=== PATIENT | female | born 1935 | race Caucasian/White ===

== ENCOUNTER → 2016-11-22 | Outpatient (CLI) | payer MEDICARE | LOC: GMAH 10:19 | PROVIDERS: ATTEND Family Medicine | DX: E78.2 Mixed hyperlipidemia (principal); E11.9 Type 2 diabetes mellitus without complications; I10 Essential (primary) hypertension ==

== ENCOUNTER → 2016-11-25 | Outpatient (CLI) | payer MEDICARE | LOC: GMAH 10:13 | PROVIDERS: ATTEND Family Medicine | DX: N39.0 Urinary tract infection, site not specified (principal) ==

== ENCOUNTER → 2016-12-08 | Outpatient (CLI) | payer MEDICARE ==
--- NOTE | 2016-12-09 16:41 | MAM ---
EXAM DESCRIPTION: 3D Screening BILATERAL CLINICAL HISTORY: 81 yearsFemaleSCREENING. Postmenopausal. COMPARISON: Digital 2-D bilateral screening study 07/05/2011.. No prior reports available. TECHNIQUE: Bilateral CC and MLO projection full-field images, 3-D tomosynthesis digital mammographic technique. Also bilateral synthesized CC/ MLO full-field images. CAD not utilized. FINDINGS: The breast parenchymal density pattern is: Heterogeneously dense breast tissue, which may obscure small masses. No skin thickening or nipple retraction small right axillary lymph node. Bilateral solitary microaneurysm macrocalcifications. Calcifications have increased bilaterally since prior study. No focal, stellate mass or density, focal asymmetry , and no suspicious microcalcifications bilaterally. Stable mammograms compared to prior study, except for increased bilateral calcifications, taking into account differences in mammographic technique IMPRESSION: BI-RADS CATEGORY: 2 - BENIGN FINDINGS. FOLLOW UP: Routine digital bilateral screening, one year interval from December 2016. Written communication explaining the findings and follow-up, will be mailed to the patient and referring health care provider. According to the [employer], yearly mammograms are recommended starting at age 40 and continuing as long as a woman is in good health. Any breast change noted on a breast self-exam should be reported promptly to the patient's healthcare provider. Breast MRI is recommended for women with an approximately 20-25% or greater lifetime risk of breast cancer, including women with a strong family history of breast or ovarian cancer and women who have been treated for Hodgkin's disease. A negative mammographic report should not delay tissue diagnosis in patients with significant clinical history or physical findings. Extremely dense breast tissue limits the sensitivity of digital mammography. Electronically signed by: Odilon Ch MD 12/09/2016 4:40 PM CDT Workstation: [id number]
== END ==
LOC: MAMMO 10:30
PROVIDERS: ATTEND Family Medicine
DX: Z12.31 Encounter for screening mammogram for malignant neoplasm of breast (principal)
CPT/HCPCS: G0202; G0279

== ENCOUNTER → 2017-02-28 | Outpatient (CLI) | payer MEDICARE ==
--- NOTE | 2017-02-28 12:24 | US ---
Study: Bilateral Carotid Artery Doppler Sonogram. Indication: OCCLUSION AND STENOSIS OF CAROTID ARTERY Technique: Multiplanar grayscale and Doppler sonographic images of the bilateral carotid arteries and vertebral arteries were obtained. Findings: The bilateral carotid arteries demonstrate mild intimal thickening and calcified plaque. Analysis of duplex waveforms and flow velocities indicate no hemodynamically significant stenosis. The vertebral arteries demonstrate antegrade flow. Impression: Mild atherosclerosis of the bilateral carotid arteries without hemodynamically significant stenosis. Electronically signed by: Jason Goodrich MD 02/28/2017 12:22 PM CDT
== END | disposition home or self-care (01) ==
LOC: US 07:43
PROVIDERS: ATTEND Family Medicine
DX: I65.23 Occlusion and stenosis of bilateral carotid arteries (principal)

== ENCOUNTER → 2017-12-05 | Outpatient (CLI) | payer MEDICARE | LOC: GMAH 10:39 | PROVIDERS: ATTEND Family Medicine | DX: E78.2 Mixed hyperlipidemia (principal); E11.9 Type 2 diabetes mellitus without complications; I10 Essential (primary) hypertension ==

== ENCOUNTER → 2017-12-07 | Outpatient (CLI) | payer MEDICARE | LOC: GMAH 11:17 | PROVIDERS: ATTEND Family Medicine | DX: N39.0 Urinary tract infection, site not specified (principal) ==

== ENCOUNTER 2018-02-25 05:52 | Emergency (ER) | payer MEDICARE ==
[2018-02-25 06:14] VITALS: TEMP 101.1
--- NOTE | 2018-02-25 06:28 | ED.PDOC ---
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 LISINOPRIL FOR HYPERTENSION - History of Present Illness Timing/Duration: just prior to arrival Fever Severity/Quality: greater than 100.5 F Associated Symptoms: denies symptoms <Lyssa Elliott - Last Filed: 02/25/18 06:22> <SAMINA ESCOBAR - Last Filed: 02/25/18 07:07> - General Chief Complaint: Fever Stated Complaint: I was shaking so bad Time Seen by Provider: 02/25/18 06:22 Review of Systems - Review of Systems Constitutional: States: chills, fever EENTM: States: no symptoms reported Respiratory: States: no symptoms reported Cardiology: States: no symptoms reported Gastrointestinal/Abdominal: States: no symptoms reported Genitourinary: States: no symptoms reported Musculoskeletal: States: no symptoms reported Skin: States: no symptoms reported Neurological: States: no symptoms reported Endocrine: States: no symptoms reported Hematologic/Lymphatic: States: no symptoms reported <Lyssa Elliott - Last Filed: 02/25/18 06:22> Past Medical History (General) - Patient Medical History Hx Seizures: No Hx Stroke: No Hx Dementia: No Hx Asthma: No Hx of COPD: No Hx Cardiac Disorders: Yes Hx Congestive Heart Failure: No Hx Pacemaker: No Hx Hypertension: Yes Hx Thyroid Disease: No Hx Diabetes: Yes Hx Gastroesophageal Reflux: No Hx Renal Disease: No Hx Cancer: Yes - colon ca Hx of HIV: No Hx Hepatitis C: No Hx MRSA: No Surgical History: Hysterectomy - Vaccination History Hx Tetanus, Diphtheria Vaccination: No Hx Influenza Vaccination: No Hx Pneumococcal Vaccination: No Immunizations Up to Date: No - Social History Hx Tobacco Use: No Hx Chewing Tobacco Use: No Hx Alcohol Use: No Hx Substance Use: No Hx Substance Use Treatment: No Hx Depression: No Feels Threatened In Home Enviroment: No Feels Threatened In a Relationship: No Hx Physical Abuse: No Hx Emotional Abuse: No Hx Suspected Abuse: No - Female History Patient is a Female of Child Bearing Age (10 -59 yrs old): No Patient : No <EarlFrancisco JLyssa - Last Filed: 02/25/18 06:22> Family Medical History - Family History Maternal Family History: Unknown <EarlFrancisco JLyssa - Last Filed: 02/25/18 06:22> Physical Exam - Physical Exam General Appearance: Alert, Comfortable Eye Exam: left normal ENT Exam: normal ENT inspection, TMs normal, pharynx normal Neck: non-tender, full range of motion, supple Respiratory: chest non-tender, lungs clear, normal breath sounds Cardiovascular/Chest: normal peripheral pulses, regular rate, rhythm, no edema Gastrointestinal/Abdominal: normal bowel sounds, non tender, soft, no organomegaly 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 Chart read and history and physial verified and repeated. Patient is an 82 year old who went to bed in her usual health but awoke with severe chills. She feels better now but was concerned as she has had recurrent UTIS. She has no cough, congestion, shortness of breath, chest pain, emesis, or diarrhea. She denies dysuria but does have some nausea. She has DM II but is otherwise healthy. PE HEENT: TM clear, OP with no e/e/e, no congestion, no sinus tenderness, PERRL, EOMI CV: RRR nl S1S2 no murmur rubs or gallops Lungs: CTA no crackles no rhonchi no wheezes ABD: s/nt/nd/pos BS EXT: no cyanosis, clubbing, or edema Neuro: pleasant oriented female in NAD alert and oriented with no deficit Explained results to patient and will give rocephin here and start Keflex 500 mg po TID x 10 days and have her follow up with her PCP on Tuesday. She will return to ER for increased temp >100.5, emesis, or worsening of symptoms. <SAMINA ESCOBAR - Last Filed: 02/25/18 07:07> Departure <Lyssa Elliott - Last Filed: 02/25/18 06:22> <SAMINA ESCOBAR - Last Filed: 02/25/18 07:07> - Departure Clinical Impression: UTI (urinary tract infection) Qualifiers: Urinary tract infection type: acute cystitis Hematuria presence: without hematuria Qualified Code(s): N30.00 - Acute cystitis without hematuria Disposition: Discharge to Home or Self Care Condition: Good Departure Forms: ED Discharge - Pt. Copy, Patient Portal Self Enrollment Referrals: Josh Arce MD [Primary Care Provider] - 1-2 Weeks Home Medications: Ambulatory Orders Cephalexin Monohydrate [Keflex] 500 mg PO TID #30 cap 02/25/18 Gemfibrozil [Lopid] 600 mg PO BID 02/25/18 Lisinopril [Prinivil] 10 mg PO DAILY 02/25/18 Metformin HCl [Metformin HCl] 500 mg PO BID 02/25/18 Omeprazole [Omeprazole Dr] 20 mg PO DAILY 02/25/18 Simvastatin [Simvastatin] 80 mg PO DAILY 02/25/18 Additional Instructions: Keflex 500 mg po TID x 10 days and have her follow up with her PCP on Tuesday. She will return to ER for increased temp >100.5, emesis, or worsening of symptoms.
--- NOTE | 2018-02-25 06:39 | RAD ---
EXAM DESCRIPTION: Chest,1 View CLINICAL HISTORY:82 years Female, fever, chills Comparison: April 18, 2007 FINDINGS: No focal lung consolidation. No pleural effusion. No pneumothorax. Cardiac and mediastinal silhouette is unremarkable. No acute osseous abnormality. Aortic calcifications. Soft tissues are unremarkable. IMPRESSION: No acute findings. No focal lung consolidation. Electronically signed by: Ted Layton MD 02/25/2018 6:38 AM CDT
[2018-02-25] MEDS ORDERED: ACETAMINOPHEN 500 MG TAB PO ONE (06:58)
[2018-02-25] MEDS ORDERED: cefTRIAXone SODIUM 1 GM in SODIUM CHL 0.9% 50ML MIN-BAG+ 50 ML IVPB ONE (06:58)
[2018-02-25] MEDS ORDERED: SODIUM CHL 0.9% 50ML MIN-BAG+ 50 ML IVPB ONE (07:08)
[2018-02-25] MEDS ORDERED: cefTRIAXone SODIUM 1 GM VIAL ONE (07:08)
[2018-02-25 07:36] VITALS: BP 145/65; O2SAT 95
== END 2018-02-25 08:10 | disposition home or self-care (01) ==
LOC: ER 05:52
DX: N30.00 Acute cystitis without hematuria (principal); E11.9 Type 2 diabetes mellitus without complications; I10 Essential (primary) hypertension; Z85.038 Personal history of other malignant neoplasm of large intestine; Z79.84 Long term (current) use of oral hypoglycemic drugs
CPT/HCPCS: 36415; 71045; 80053; 81001; 85025; 87086; 87502; J0696; J7050

== ENCOUNTER 2018-02-27 07:55 | Inpatient (IN) | payer MEDICARE ==
--- NOTE | 2018-02-27 08:13 | ED.PDOC ---
History of Present Illness - General Chief Complaint: General Stated Complaint: fever Time Seen by Provider: 02/27/18 08:12 Source: patient Exam Limitations: no limitations - History of Present Illness Initial Comments: Jade Khan 83 y/o female stated that she has fever and shaky specially in am since -3 days ago had n/v x 2 yesterday but stopped no diarrhea,no cough has some abdominal discomfort and moderate dysuria.Seen here in ER Tuesday.Prescribed Cephalexin for her UTI Allergies/Adverse Reactions: Allergies NO KNOWN ALLERGY Allergy (Verified 02/25/18 06:02) Home Medications: Ambulatory Orders Cephalexin Monohydrate [Keflex] 500 mg PO TID #30 cap 02/25/18 Gemfibrozil [Lopid] 600 mg PO BID 02/25/18 Lisinopril [Prinivil] 10 mg PO BID 02/25/18 Metformin HCl [Metformin HCl] 500 mg PO BID 02/25/18 Omeprazole [Omeprazole Dr] 20 mg PO DAILY 02/25/18 Simvastatin [Simvastatin] 80 mg PO DAILY 02/25/18 Aspirin [Aspirin Adult Low Dose] 81 mg PO DAILY 02/27/18 Clonidine HCl 0.1 mg PO BEDTIME 02/27/18 Review of Systems - Review of Systems Constitutional: States: fever EENTM: States: no symptoms reported Respiratory: States: no symptoms reported Cardiology: States: no symptoms reported Gastrointestinal/Abdominal: States: see HPI Genitourinary: States: see HPI Musculoskeletal: States: no symptoms reported Skin: States: no symptoms reported Neurological: States: no symptoms reported Endocrine: States: no symptoms reported Past Medical History (General) - Patient Medical History Hx Seizures: No Hx Stroke: No Hx Dementia: No Hx Asthma: No Hx of COPD: No Hx Cardiac Disorders: Yes Hx Congestive Heart Failure: No Hx Pacemaker: No Hx Hypertension: Yes Hx Thyroid Disease: No Hx Diabetes: Yes Hx Gastroesophageal Reflux: No Hx Renal Disease: No Hx Cancer: Yes - colon ca Hx of HIV: No Hx Hepatitis C: No Hx MRSA: No Surgical History: cholecystectomy, other - colon,hysterectomy ,bladder suspension - Vaccination History Hx Tetanus, Diphtheria Vaccination: No Hx Influenza Vaccination: No Hx Pneumococcal Vaccination: No - Social History Hx Tobacco Use: No Hx Chewing Tobacco Use: No Hx Alcohol Use: No Hx Substance Use: No Hx Substance Use Treatment: No Hx Depression: No Hx Physical Abuse: No Hx Emotional Abuse: No Hx Suspected Abuse: No - Activities of Daily Living Patient Lives Alone: No Home Health Agency (if applicable): [facility] [place] Grooming Ability: Independent Eating (Feeding) Ability: Independent Toileting Ability: Independent - Female History Patient : No Family Medical History - Family History Maternal Family History: Unknown Hx Family Cancer: Yes - dad-prostate; Hx Family;Other: MOM- age 9090 years old -old age Physical Exam - Physical Exam General Appearance: Alert, Comfortable, No apparent distress, Well Developed, Well Nourished, Other - not acutely ill Eye Exam: bilateral normal Ears, Nose, Throat: hearing grossly normal, normal ENT inspection, normal pharynx Neck: non-tender, full range of motion, supple Respiratory: chest non-tender, lungs clear, normal breath sounds Cardiovascular/Chest: normal peripheral pulses, regular rate, rhythm, no murmur Peripheral Pulses: radial,right: 2+, radial,left: 2+ Gastrointestinal/Abdominal: normal bowel sounds, soft, tenderness - tenderness alll over Back Exam: no CVA tenderness, no vertebral tenderness Extremity: normal range of motion, non-tender, no pedal edema, no calf tenderness Neurologic: alert, oriented x 3 Skin Exam: normal color, warm/dry Lymphatic: no adenopathy Progress - Progress Progress: 02/27/18 08:33 Vital Signs - 8 hr 02/27/18 02/27/18 08:00 08:24 Temperature 102.0 F H Pulse Rate [ 111 H 147 H left brachial] Respiratory 22 20 Rate Blood Pressure 186/121 154/85 [left brachial] O2 Sat by Pulse 97 96 Oximetry - Results/Orders Results/Orders: Vital Signs - 24 hr 02/27/18 02/27/18 02/27/18 08:00 08:24 09:20 Temperature 102.0 F H 100.5 F H Pulse Rate [ 111 H 147 H 138 H left brachial] Respiratory 22 20 18 Rate Blood Pressure 186/121 154/85 140/90 [left brachial] O2 Sat by Pulse 97 96 95 Oximetry 02/27/18 02/27/18 02/27/18 10:01 10:29 10:59 Temperature 101.1 F H 100.2 F H Pulse Rate [ 143 H 137 H left brachial] Respiratory 16 24 Rate Blood Pressure 145/75 159/91 [left brachial] O2 Sat by Pulse 94 L 94 L Oximetry 02/27/18 02/27/18 02/27/18 11:30 12:00 13:03 Temperature 100.1 F H Pulse Rate [ 132 H 84 78 left brachial] Respiratory 16 16 18 Rate Blood Pressure 123/66 104/67 117/58 [left brachial] O2 Sat by Pulse 95 95 96 Oximetry 02/27/18 14:00 Temperature Pulse Rate [ 80 left brachial] Respiratory 16 Rate Blood Pressure 163/87 [left brachial] O2 Sat by Pulse 97 Oximetry 02/27/18 08:14 IV Care:Saline Lock per Protoc QSHIFT 02/27/18 08:35 B-TYPE NATRIURETIC PEPTIDE/BNP Stat 02/27/18 08:45 URINE CULTURE W/COLONY COUNT Stat EKG STAT 02/27/18 09:14 BLOOD CULTURE Stat 02/27/18 13:03 EKG Assessment ONCE 02/27/18 13:15 Be Our Guest [place] [place] E[place] STAT 02/27/18 13:26 Flu A&B [INFLUENZA A & B ANTIGEN] Stat Laboratory Results - last 24 hr 02/27/18 02/27/18 02/27/18 08:35 08:35 08:45 WBC 8.1 RBC 3.66 L Hgb 11.6 L Hct 35.1 L MCV 96.0 MCH 31.6 H MCHC 33.0 RDW 12.2 Plt Count 191 MPV 10.0 Absolute Neuts (auto) 7.30 H Absolute Lymphs (auto) 0.60 L Absolute Monos (auto) 0.10 L Absolute Eos (auto) 0.10 Absolute Basos (auto) 0.00 Neutrophils % 89.9 H Lymphocytes % 7.3 L Monocytes % 1.5 L Eosinophils % 0.9 L Basophils % 0.4 PT 10.1 INR 1.01 PTT (SP) 27.6 Sodium 136 Potassium 4.3 Chloride 103 Carbon Dioxide 21 Anion Gap 16.3 BUN 15 Creatinine 0.65 BUN/Creatinine Ratio 23.1 H Random Glucose 145 H Serum Osmolality 275.4 Lactic Acid 1.8 Calcium 9.1 Magnesium 1.8 Total Bilirubin 0.8 Direct Bilirubin 0.2 Indirect Bilirubin 0.6 AST 34 ALT 31 Alkaline Phosphatase 98 Creatine Kinase 114 CK-MB (CK-2) 1.4 CK-MB (CK-2) % Not Reportable Troponin I 0.08 H* Serum Total Protein 7.5 Albumin 3.4 Urine Color Malia H Urine Appearance Cloudy Urine pH 7.0 Ur Specific [place] 1.020 Urine Protein 100 H Urine Glucose (UA) Negative Urine Ketones Trace Urine Blood Small H Urine Nitrite Negative Urine Bilirubin Negative Urine Urobilinogen 0.2 Ur Leukocyte Esterase Small H Urine RBC 10-20 H Urine WBC >50 H Ur Epithelial Cells 3-5 Amorphous Sediment Trace Urine Bacteria 1+ Hyaline Casts 0-1 Urine Mucus Trace 02/27/18 10:53 WBC RBC Hgb Hct MCV MCH MCHC RDW Plt Count MPV Absolute Neuts (auto) Absolute Lymphs (auto) Absolute Monos (auto) Absolute Eos (auto) Absolute Basos (auto) Neutrophils % Lymphocytes % Monocytes % Eosinophils % Basophils % PT INR PTT (SP) Sodium Potassium Chloride Carbon Dioxide Anion Gap BUN Creatinine BUN/Creatinine Ratio Random Glucose Serum Osmolality Lactic Acid Calcium Magnesium Total Bilirubin Direct Bilirubin Indirect Bilirubin AST ALT Alkaline Phosphatase Creatine Kinase CK-MB (CK-2) CK-MB (CK-2) % Troponin I 0.13 H* Serum Total Protein Albumin Urine Color Urine Appearance Urine pH Ur Specific [place]ona Urine Protein Urine Glucose (UA) Urine Ketones Urine Blood Urine Nitrite Urine Bilirubin Urine Urobilinogen Ur Leukocyte Esterase Urine RBC Urine WBC Ur Epithelial Cells Amorphous Sediment Urine Bacteria Hyaline Casts Urine Mucus - EKG/XRAY/CT EKG: Sinus, Tachy, nonspecific ST T wave Chg Comments: HR-147 XRAY: chest - cardiomegaly,no chf/radiologist - Additional EKG/XRAY/Consults EKG #2: Sinus, no ST T wave changes Comments: HR-77 Departure - Departure Clinical Impression: Elevated troponin I level Fever Qualifiers: Fever type: unspecified Qualified Code(s): R50.9 - Fever, unspecified Urinary tract infection Qualifiers: Urinary tract infection type: site unspecified Hematuria presence: without hematuria Qualified Code(s): N39.0 - Urinary tract infection, site not specified Time of Disposition: 15:28 Disposition: Discharge to Home or Self Care Condition: Fair Departure Forms: ED Discharge - Pt. Copy, Patient Portal Self Enrollment Referrals: Josh Arce MD [Primary Care Provider] - 1-2 Weeks Home Medications: Ambulatory Orders Cephalexin Monohydrate [Keflex] 500 mg PO TID #30 cap 02/25/18 Gemfibrozil [Lopid] 600 mg PO BID 02/25/18 Lisinopril [Prinivil] 10 mg PO BID 02/25/18 Metformin HCl [Metformin HCl] 500 mg PO BID 02/25/18 Omeprazole [Omeprazole Dr] 20 mg PO DAILY 02/25/18 Simvastatin [Simvastatin] 80 mg PO DAILY 02/25/18 Aspirin [Aspirin Adult Low Dose] 81 mg PO DAILY 02/27/18 Clonidine HCl 0.1 mg PO BEDTIME 02/27/18 Decision To Admit - Decistion To Admit Decision to Admit Reason: Admit from ER Decision to Admit Date: 02/27/18 - D/W Jaxon Yanez-ANP/Hospitalist Decision to Admit Time: 15:26
--- NOTE | 2018-02-27 08:34 | RAD ---
EXAM DESCRIPTION: Chest,1 View CLINICAL HISTORY: 82 years Female, fever COMPARISON: Previous study February 25, 2018 TECHNIQUE: AP portable chest. FINDINGS: Heart size is large with mildly prominent central pulmonary vascularity. No consolidating infiltrate, pneumothorax or pleural effusion. No worrisome pulmonary nodule or mass. Heart appears somewhat larger than on previous study. Bones are unremarkable. IMPRESSION: Large heart without congestive failure. Electronically signed by: Ronny Peralta MD 02/27/2018 8:32 AM CDT
[2018-02-27] MEDS ORDERED: ASPIRIN TABLET 325 MG TAB PO ONE (08:54)
[2018-02-27] MEDS ORDERED: SODIUM CHLORIDE 0.9% 1000ML 1,000 ML ONE (08:58)
[2018-02-27] MEDS ORDERED: KETOROLAC TROMETHAMINE INJ 30 MG/ML VIAL IV ONE (10:09)
[2018-02-27] MEDS ORDERED: SODIUM CHLORIDE 0.9% 500ML 500 ML IVS ONE (10:09)
[2018-02-27] MEDS ORDERED: levoFLOXacin 750MG IV 750 MG in PREMIX BAG 1 BAG IVPB ONE (10:11)
--- NOTE | 2018-02-27 10:41 | CT ---
EXAM DESCRIPTION: Abdomen/Pelvis w/o Contrast: Computed Tomography. CLINICAL HISTORY: fever/abdominal pain COMPARISON: CT scan of the abdomen and pelvis without contrast 11/19/2011. TECHNIQUE: Spiral-axial scans 2.5 mm intervals through the abdomen and pelvis without oral or IV contrast. Coronal and sagittal 2.0 mm reconstructions. Total Exam DLP: 991.68 mGy-cm. This exam was performed according to our departmental CT dose-optimization program which includes automated exposure control, adjustment of the mA and/or kV according to patient size and/or use of iterative reconstruction technique; to reduce radiation dose to as low as reasonably achievable (ALARA). FINDINGS: Lung bases and pleura: Pleural base 6 mm nodule right lower lobe on axial image 12. Bilateral pleural thickening with no effusion. Atelectasis in the inferior lingula versus scarring. Liver, stomach, spleen, and adrenal glands: 5.5 cm cyst in the medial segment of the left hepatic lobe. Stable since the prior study. Long axis of the right lobe is 22 cm. No change since the prior study. Small hiatal hernia remainder of the stomach and other solid organs are negative. Pancreas, Gallbladder, and Ducts: Surgical clips in the gallbladder fossa. Duct not dilated. Minimal fatty infiltration of the pancreas. Kidneys and Ureters: 3 cm cyst projecting from the superior cortex lateral right kidney. 3 mm radiodense stone in the mid collecting system. No hydronephrosis. Ureters are unremarkable. Thin cortex in the left kidney. Mesentery: No significant fatty stranding or fascial thickening in the abdominal compartment or in the hernias. Please see below. Aorta: Moderate atherosclerotic calcification extending into the common iliac arteries. Narrowing of the distal aortic lumen. Small Bowel: Negative. Terminal Ileum/Cecum: TI negative. Cecum slightly distended by fecal matter. No definite appendix. Small diverticula but no complications. Colon: Fecal material in the proximal and distal colon. Anastomosis of the mid sigmoid with the descending colon/sigmoid junction. No obstruction or mass. Pelvic Organs: Bladder wall thickening. No calcifications or loose radiodense stones. Vaginal cuff unremarkable. Spine and Bony Pelvis: Bulging L3-4 disc mild thoracolumbar dextroscoliosis. Abdominal Wall/Back Soft Tissues: Infraumbilical 5.7 x 4.4 cm midline abdominal wall defect containing gas-filled loops of small bowel but no evidence of incarceration, strangulation, or obstruction. No free fluid. Second much smaller hernia containing mesentery only in the midline above the umbilicus on axial images 68-78. Minimal density in the mesentery. Dimensions of the defect are 1.6 x 1.0 cm. IMPRESSION: 1. Two Hernias in the abdominal midline wall with the largest infraumbilical, defect measuring almost 6 cm diameter. Has enlarged slightly since the prior study. Small bowel within the hernia shows no complications. Supraumbilical midline anterior abdominal wall defect is stable since the prior study with minimal fatty density only herniated, no new edema or mass. 2. Anastomosis in the distal colon is unremarkable with no evidence of recurrent mass or obstruction. No free fluid. 3. 3 cm cyst projecting from the posterior superior right renal cortex has enlarged since the prior study. Measures fluid density and well-circumscribed. Stable stone within the right kidney. Minimal left renal cortical atrophy. 4. Stable hepatomegaly and 5.5 cm left hepatic cyst. 5. Stable pleural nodule in the right lung base. Electronically signed by: Odilon Ch MD 02/27/2018 10:40 AM CDT
[2018-02-27] MEDS ORDERED: LABETALOL INJ 5 MG/ML VIAL IV ONE (10:57)
[2018-02-27] MEDS ORDERED: ONDANSETRON INJ 4 MG/2 ML VIAL IV ONE ×2 (13:00→13:03)
[2018-02-27] MEDS ORDERED: MEROPENEM 500 MG in SODIUM CHL 0.9% 50ML MIN-BAG+ 50 ML IVPB ONE (13:27)
[2018-02-27] MEDS ORDERED: MEROPENEM 500 MG VIAL IVPB ONE (14:37)
[2018-02-27] MEDS ORDERED: SODIUM CHL 0.9% 50ML MIN-BAG+ 50 ML IVPB ONE ×2 (14:38→20:28)
--- NOTE | 2018-02-27 15:39 | HP ---
SUPERVISING PHYSICIAN: Caesar Tinajero MD CHIEF COMPLAINT: Fever. HISTORY OF PRESENT ILLNESS: Ms. Day is an 83 year-old female patient who presented to the Emergency Room today after she started running a fever and became shaky at home. She noted that she had first experienced the same symptoms on February 25 at which time she was seen in the Emergency Room and had some nausea and vomiting for two days. She was treated in the Emergency Room Tuesday for a urinary tract infection and started on Cephalexin. Today on her presentation to the Emergency Room, her vital signs are showing she had a temperature of 102.0, pulse 138 to 147, blood pressure was showing some elevation at 140/90, saturation 95% on room air. She denied any chest pain or shortness of breath. She was given Tylenol and fluids. Along with the nausea and vomiting in the past two days she had been experiencing abdominal discomfort as well as some mild to moderate dysuria. Laboratory showed a normal white count but a left shift. Chemistries showed normal electrolytes. Cardiac enzymes showed an elevation in troponin, initially 0.08, repeat at 2 hours was up to 0.13. Urinalysis showed a small amount of blood with small leukoesterase and microscopic revealed 10 to 20 RBCs with greater than 50 WBCs and 1+ bacteria with 0 to 7 hyalin cath, trace amount of mucus. She was started on meropenem for a urinary tract infection. She had a flu swab that was negative for both A&B. EKG showed a normal sinus rhythm after her rate was controlled with a single dose of labetalol. Again, she was not complaining of any chest pain and temperature had responded well to Tylenol and treatment. Patient is now going to be admitted to the medical/surgical floor for ongoing treatment of urinary tract infection, concerns for sepsis, having failed to respond to outpatient treatment plans. PAST MEDICAL HISTORY: 1. Hypertension. 2. Hyperlipidemia. 3. Colon cancer in 2008 with surgical resection. PAST SURGICAL HISTORY: 1. Cholecystectomy. 2. Colon resection in 2008. 3. Hysterectomy. 4. Bladder suspension. CURRENT MEDICATIONS: 1. Lopid 600 mg b.i.d. 2. Simvastatin 80 mg daily. 3. Omeprazole 20 mg at breakfast. 4. Metformin 500 mg b.i.d. 5. Lisinopril 10 mg b.i.d. 6. Clonidine 0.1 mg at bedtime. 7. Keflex 500 mg t.i.d. 8. Aspirin 81 mg daily. ALLERGIES: NO KNOWN DRUG ALLERGIES. FAMILY HISTORY: Father at age 68 secondary to lung cancer. Mother at age 90 of natural causes. She has one sister who 2 years previously from a myocardial infarction. SOCIAL HISTORY: Patient is a retired hospital secretary. She is , her is sole cell geneticist who has advanced Parkinson's disease. She has 4 children. She was a previous tobacco smoker but quit 15 years previously as well as she quit drinking alcohol several years in the past. She denies any illicit drug use. REVIEW OF SYSTEMS: CONSTITUTIONAL: As noted in the history of present illness, fevers, chills. T- max temperature of 102.0. HEENT: Denies ear aches, sore throat, nasal congestion. RESPIRATORY: Denies cough, wheezing, shortness of breath. CARDIOVASCULAR: Denies chest pain, palpitations or syncopal episodes or peripheral edema. GASTROINTESTINAL: As noted in history of present illness. . GENITOURINARY: As noted in history of present illness. MUSCULOSKELETAL: No reported symptoms. NEUROLOGICAL: Denies headaches, seizures, ataxia or other neurological deficits. PHYSICAL EXAMINATION: VITAL SIGNS: Initially in the Emergency Room, temperature was 102.0 with heart rate of 147, chest pain 149/90, saturation 95% on room air with respirations 18. After Tylenol fever decade along with fluids and labetalol, heart rate was 84, blood pressure 104/67, respirations 16, saturation 95% on room air. Admission weight 75.4 kg. GENERAL: The patient appeared to be in no acute distress, resting comfortably, well-hydrated and well-nourished. HEENT: Tympanic membranes clear bilaterally. Oropharynx is pink, moist without any lesions. NECK: Supple, non-tender. No jugular venous distention noted. CHEST: Lungs clear to auscultation bilaterally without any rhonchi, wheezes, or rales. HEART: Regular rate and rhythm without any appreciable murmurs, gallops, or rubs. ABDOMEN: Soft with some tenderness noted over the epigastrium. No rebound tenderness. Bowel sounds are present. EXTREMITIES: There is no cyanosis, clubbing or edema. NEUROLOGIC: Cranial nerves II-XII are grossly intact. The patient is alert and oriented times three. Facial features were symmetrical. Extraocular movement were normal, no notably nystagmus. LABORATORY: White count on admission was 8,100 with hemoglobin 11.6, hematocrit 35.1, platelet count 191,000, differential showed to have a left shift. Coagulation studies showed normal PT/PTT. Initial chemistries showed normal electrolytes with potassium 4.3, BUN 15, creatinine 0.65, magnesium 1.8, calcium 9.1. Liver functions all within normal limits. Initial troponin 0.08 and two hours post admission was 0.13 with BNP of 406. Urinalysis showed 100 of protein, small amount of blood and small leukoesterase on dipstick. Microscopic showed 10 to 20 RBCs, greater than 50 WBCs, 3 to 5 epithelials, 1+ bacteria, 0 to 1 hyalin caths and trace mucus. MICROBIOLOGY: Urine culture is pending. She had an influenza swab by PCR that was negative for A and B. RADIOLOGY: Initially she had a chest x-ray in the Emergency Department and a single view chest per radiology interpretation showed enlarged heart without congestive failure. This was followed up with a CT of the abdomen and pelvis. without contrast and per radiology interpretation there was note of 2 hernias in the midline with no complications noted. Also noted was anastomosis of distal colon was unremarkable with no evidence of recurrence mass or obstruction. There was noted a 3 cm cyst projecting through the superior right renal cortex, enlarged from previous studies. There was note of stable hepatomegaly and a 5.5 cm left hepatic cyst and a stable pleural nodule in the right lung base. EK-lead EKG initially in the Emergency Room showed a tachycardia and after she was given labetalol and fluids and Tylenol, repeat EKG showed a normal sinus rhythm with no ST-wave changes, no T-wave inversions. ASSESSMENT: 1. Sepsis as noted with tachycardia, fever of 102 with identified source being a urinary tract infection having failed to respond to outpatient management. 2. Urinary tract infection having failed to respond to antibiotic therapy in outpatient setting requiring initiation of parenteral antibiotics. 3. Elevated troponins, uncertain etiology and likely due to acute stress event with 102 fever with no reported chest pains and EKG showing no acute changes, no ST elevation or T-wave inversion. 4. Hypertension with last echocardiogram noted to be in 2006 with ejection fraction of 60%. 5. Diabetes mellitus type 2 on oral therapy. 6. History of pulmonary nodule unchanged on current CT studies. 7. History of frequent urinary tract infections in the the past having a bladder suspension. 8. History of colon cancer in 2008 with a mass in the colon with colon resection performed by Dr. Rowland. 9. Hernias, one in the dome of midline and one supraumbilical without any noted complications on CT. 10. Gastroesophageal reflux disease on PPI with current symptoms including epigastric discomfort. PLAN: The patient is going to be admitted to the medical/surgical floor for ongoing treatment of urinary tract infection with sepsis. She was given fluids , labetalol and initiated on antibiotics with meropenem in the Emergency Room. This will be continued. The meropenem will be continued on admission and will await cultures to further target antibiotic therapy. I plan to repeat her cardiac enzymes and consult with Dr. Brielle Fitzpatrick the morning as he is her metallurgical laboratory assistant, and closely monitor on cardiac telemetry. Will repeat EKGs. Will start her on some IV fluids for maintenance as she appears to be a little bit dehydrated. Will have Tylenol and Motrin for any fevers. Will monitor blood cultures. She will be on DVT prophylaxis as per protocol. We will resume her home medications once they have been updated and verified in the electronic medical records. Will anticipate her length of stay to be at least 2 to 3 days. Until the patient can transition to clinical outpatient management we will continue to monitor and treat as needed. #[id number] [facility]
[2018-02-27] MEDS ORDERED: DEXTROSE 50% 25 GM/50 ML SYG IV PRN (15:46)
[2018-02-27] MEDS ORDERED: GLUCAGON INJ 1 MG VIAL SUBCU PRN (15:46)
[2018-02-27] MEDS ORDERED: ONDANSETRON INJ 4 MG/2 ML VIAL IV PRN (15:46)
[2018-02-27] MEDS ORDERED: IV SET AND CAP CHANGE INJ INJ SCH (16:00)
[2018-02-27] MEDS: INSULIN LISPRO 100 UNITS/ML PEN SUBCU SCH ×2 (17:19→21:06)
[2018-02-27] MEDS ORDERED: MEROPENEM 1 GM VIAL IVPB ONE (20:28)
[2018-02-27] MEDS: LISINOPRIL 10 MG TAB PO SCH (20:55)
[2018-02-27] MEDS: cloNIDine HCL 0.1 MG TAB PO SCH (20:55)
[2018-02-27] MEDS: KCL 20 MEQ/NS 1,000 ML IVS PRN (20:56)
[2018-02-27] MEDS: SODIUM CHLORIDE 0.9% (FLUSH) 10 ML SYG IV PRN (20:56)
[2018-02-27] MEDS: ENOXAPARIN SODIUM 40 MG/0.4 ML SYG SUBCU SCH (20:56)
[2018-02-27] MEDS: GEMFIBROZIL 600 MG TAB PO SCH (20:56)
[2018-02-27] MEDS: MEROPENEM 1 GM in SODIUM CHL 0.9% 50ML MIN-BAG+ 50 ML IVPB SCH (22:27)
[2018-02-27] MEDS: ACETAMINOPHEN 325 MG TAB PO PRN (22:33)
[2018-02-28] MEDS ORDERED: SODIUM CHL 0.9% 50ML MIN-BAG+ 50 ML IVPB ONE ×3 (04:47→20:04)
[2018-02-28] MEDS ORDERED: MEROPENEM 1 GM VIAL IVPB ONE ×3 (04:48→20:05)
[2018-02-28] MEDS: MEROPENEM 1 GM in SODIUM CHL 0.9% 50ML MIN-BAG+ 50 ML IVPB SCH ×3 (06:20→22:14)
[2018-02-28] MEDS: PANTOPRAZOLE SODIUM IV 40 MG VIAL IV SCH (06:21)
[2018-02-28] MEDS: INSULIN LISPRO 100 UNITS/ML PEN SUBCU SCH ×4 (07:25→20:59)
[2018-02-28] MEDS: metFORMIN HCL 500 MG TAB PO SCH ×2 (07:34→16:33)
[2018-02-28] MEDS ORDERED: SIMVASTATIN 20 MG TAB ONE (08:12)
[2018-02-28] MEDS: GEMFIBROZIL 600 MG TAB PO SCH ×2 (08:44→20:58)
[2018-02-28] MEDS: LISINOPRIL 10 MG TAB PO SCH ×2 (08:44→20:58)
[2018-02-28] MEDS: ASPIRIN (ENTERIC COATED) 81 MG TAB PO SCH (08:44)
[2018-02-28] MEDS ORDERED: NON-FORMULARY MEDICATION 1 EA MIS (Simvastatin [Simvastatin] 80 MG) PO SCH (09:00)
[2018-02-28] MEDS: KCL 20 MEQ/NS 1,000 ML IVS PRN (11:02)
[2018-02-28] MEDS: METOPROLOL SUCCINATE XL 50 MG TAB PO SCH (12:53)
[2018-02-28] MEDS: ACETAMINOPHEN 325 MG TAB PO PRN ×2 (12:53→21:01)
[2018-02-28] MEDS: METOPROLOL TARTRATE INJ 5 MG/5 ML VIAL IV ONE ×2 (12:55)
[2018-02-28] MEDS ORDERED: ALPRAZolam 0.25 MG TAB PO ONE (13:04)
[2018-02-28] MEDS ORDERED: ACETAMINOPHEN 325 MG TAB PO PRN (13:04)
[2018-02-28] MEDS ORDERED: ALPRAZolam 0.25 MG TAB PO PRN (13:29)
[2018-02-28] MEDS ORDERED: ALUMINUM & MAGNESIUM HYDROXIDE 30 ML UD PO PRN (13:29)
--- NOTE | 2018-02-28 14:00 | PN ---
SUPERVISING PHYSICIAN: Caesar Tinajero MD DATE: 02/28/18 SUBJECTIVE: The patient is lying in bed. She has just returned from Dr. Hannah ' office. Earlier, she had felt a little flushed and her heart rate was up. We started her on metoprolol as recommended by Dr. Hannah. She also received one dose of Xanax and she is feeling much better now. She does complain of having acid indigestion after eating and she was quite concerned about that. Otherwise, she has no complaints of chest pain, shortness of breath, nausea or vomiting. OBJECTIVE: VITAL SIGNS: Afebrile. Heart rate 112. Blood pressure 165/77. Respiratory rate 20. O2 saturation 92% on room air. RESPIRATORY: Essentially clear to auscultation bilaterally. CARDIAC: Slightly irregular with a tachycardic rate. GASTROINTESTINAL: Abdomen is soft, nondistended, nontender. Bowel sounds are positive. EXTREMITIES: No cyanosis, clubbing or edema. NEUROLOGIC: Awake, alert and oriented times three. LABORATORY: WBC 9.1, hemoglobin 10, hematocrit 29.8. Electrolytes are basically within normal limits with blood sugars running between 120 and 172. Urine culture is pending. All other labs and films have been reviewed via the EMR. ASSESSMENT: 1. Sepsis as noted with tachycardia, fever of 102 with identified source being a urinary tract infection having failed to respond to outpatient management. 2. Urinary tract infection having failed to respond to antibiotic therapy in outpatient setting requiring initiation of parenteral antibiotics. 3. Elevated troponins, uncertain etiology, likely due to acute stress event with 102 fever with no reported chest pains and EKG showing no acute changes, no ST elevation or T-wave inversion. 4. Hypertension with last echocardiogram noted to be in 2006 with ejection fraction of 60%. 5. Diabetes mellitus, type 2, on oral therapy. 6. History of pulmonary nodule, unchanged on current CT studies. 7. History of frequent urinary tract infections in the the past having a bladder suspension. 8. History of colon cancer in 2008 with a mass in the colon with colon resection performed by Dr. Rowland. 9. Hernias, one in the dome of midline and one supraumbilical without any noted complications on CT. 10. Gastroesophageal reflux disease on proton pump inhibitor with current symptoms including epigastric discomfort and heartburn. PLAN: We will continue present supportive care. She saw Dr. Brielle today and he has recommended she be put on metoprolol succinate 50 mg daily and to followup with him in two weeks for an echocardiogram. He felt that the elevated troponins were more from her septic event than from a cardiac anomaly. I have started her on metoprolol succinate at 50 mg daily. I also have given her some Xanax for anxiety as well as Maalox for symptoms of heartburn and gastroesophageal reflux disease. We will continue on her present antibiotic therapy and monitor her cultures as they become available. I have ordered routine labs for in the morning. We will continue to monitor the patient closely and follow as needed. Dr. Tinajero is the collaborating physician and available for consultation. [facility][id number] [facility]
[2018-02-28] MEDS ORDERED: METOPROLOL TARTRATE INJ 5 MG/5 ML VIAL IV ONE ×2 (15:19→15:24)
[2018-02-28] MEDS: ENOXAPARIN SODIUM 40 MG/0.4 ML SYG SUBCU SCH (20:58)
[2018-02-28] MEDS: cloNIDine HCL 0.1 MG TAB PO SCH (20:58)
[2018-02-28] MEDS: SIMVASTATIN 20 MG TAB PO SCH (20:58)
[2018-03-01] MEDS: KCL 20 MEQ/NS 1,000 ML IVS PRN (02:21)
[2018-03-01] MEDS ORDERED: MEROPENEM 1 GM VIAL IVPB ONE ×3 (05:12→20:37)
[2018-03-01] MEDS ORDERED: SODIUM CHL 0.9% 50ML MIN-BAG+ 50 ML IVPB ONE ×3 (05:12→20:37)
[2018-03-01] MEDS: MEROPENEM 1 GM in SODIUM CHL 0.9% 50ML MIN-BAG+ 50 ML IVPB SCH ×3 (05:56→21:37)
[2018-03-01] MEDS: PANTOPRAZOLE SODIUM IV 40 MG VIAL IV SCH (06:29)
[2018-03-01] MEDS: INSULIN LISPRO 100 UNITS/ML PEN SUBCU SCH ×4 (07:06→21:35)
[2018-03-01] MEDS: metFORMIN HCL 500 MG TAB PO SCH ×2 (07:26→16:57)
[2018-03-01] MEDS: GEMFIBROZIL 600 MG TAB PO SCH ×2 (08:02→20:43)
[2018-03-01] MEDS: LISINOPRIL 10 MG TAB PO SCH ×2 (08:02→20:43)
[2018-03-01] MEDS: METOPROLOL SUCCINATE XL 50 MG TAB PO SCH (08:02)
[2018-03-01] MEDS: ASPIRIN (ENTERIC COATED) 81 MG TAB PO SCH (08:02)
[2018-03-01] MEDS: ACETAMINOPHEN 325 MG TAB PO PRN ×2 (14:06→19:40)
[2018-03-01] MEDS ORDERED: MAGNESIUM SULFATE PREMIX 2GM 2 GM in PREMIX BAG 1 BAG IVPB ONE (14:51)
[2018-03-01] MEDS ORDERED: MAGNESIUM SULFATE PREMIX 2GM 50 ML IVPB ONE (15:45)
--- NOTE | 2018-03-01 16:36 | PN ---
SUPERVISING PHYSICIAN: Caesar Tinajero MD DATE: 03/01/18 SUBJECTIVE: The patient is walking around in her hospital room and states she feels much better. She has had no complaints of shortness of breath, palpitations, tachycardia since yesterday afternoon. She is feeling much improved. No nausea or vomiting. OBJECTIVE: VITAL SIGNS: Temperature 98.1. T-max 24 hours is 100.7. Heart rate 95. Blood pressure 174/88 Respiratory rate 18. O2 saturation 91% on room air. RESPIRATORY: Somewhat diminished at the basis, otherwise clear to auscultation. CARDIAC: Regular rate and rhythm. . GASTROINTESTINAL: Abdomen is soft, nondistended, nontender. Bowel sounds are positive. EXTREMITIES: No cyanosis, clubbing or edema. NEUROLOGIC: Awake, alert and oriented times three. LABORATORY: WBC 10.4, hemoglobin 9.9, hematocrit 30.3. Electrolytes are basically within normal limits except magnesium is slightly low at 1.7. Her final urine culture shows no growth after 12 hours incubation. All other labs and films have been reviewed via the EMR. ASSESSMENT: 1. Sepsis as noted with tachycardia, fever of 102 on admission but is now 100.7 , most likely due to urinary tract infection having failed to respond to outpatient management. 2. Urinary tract infection having failed to respond to antibiotic therapy in outpatient setting requiring initiation of parenteral antibiotics. 3. Elevated troponins, uncertain etiology, likely due to acute stress event with 102 fever with no reported chest pains and EKG showing no acute changes, no ST elevation or T-wave inversion. 4. Hypertension with last echocardiogram noted to be in 2006 with ejection fraction of 60%. 5. Diabetes mellitus, type 2, on oral therapy. 6. History of pulmonary nodule, unchanged on current CT studies. 7. History of frequent urinary tract infections in the the past having a bladder suspension. 8. History of colon cancer in 2008 with a mass in the colon with colon resection performed by Dr. Rowland. 9. Hernias, one in the dome of midline and one supraumbilical without any noted complications on CT. 10. Gastroesophageal reflux disease on proton pump inhibitor with current symptoms including epigastric discomfort and heartburn. PLAN: We will continue present supportive care. Her temperature was 100.7 overnight. She also had some tachycardia yesterday afternoon that required 5 mg of Lopressor IV. She has not had any today. We will continue to monitor her overnight. She is also getting some magnesium replacement as well as I am stopping her IV fluids. Will repeat lab in the morning and hopefully she can be discharged home. She has a followup appointment with Dr. Hannah for an echocardiogram further checkup with him. She also is tolerating her metoprolol well. Monitor blood pressure closely. Followup as needed. #[id number] [facility]
[2018-03-01] MEDS ORDERED: METOPROLOL TARTRATE INJ 5 MG/5 ML VIAL IV ONE (19:49)
[2018-03-01] MEDS: SODIUM CHLORIDE 0.9% (FLUSH) 10 ML SYG IV PRN (19:59)
[2018-03-01] MEDS ORDERED: METOPROLOL TARTRATE 25 MG TAB PO ONE (20:05)
[2018-03-01] MEDS: cloNIDine HCL 0.1 MG TAB PO SCH (20:43)
[2018-03-01] MEDS: SIMVASTATIN 20 MG TAB PO SCH (20:43)
[2018-03-01] MEDS: ENOXAPARIN SODIUM 40 MG/0.4 ML SYG SUBCU SCH (20:43)
[2018-03-02] MEDS ORDERED: SODIUM CHL 0.9% 50ML MIN-BAG+ 50 ML IVPB ONE (04:47)
[2018-03-02] MEDS ORDERED: MEROPENEM 1 GM VIAL IVPB ONE (04:48)
[2018-03-02] MEDS: MEROPENEM 1 GM in SODIUM CHL 0.9% 50ML MIN-BAG+ 50 ML IVPB SCH (05:40)
[2018-03-02] MEDS: PANTOPRAZOLE SODIUM IV 40 MG VIAL IV SCH (06:35)
[2018-03-02] MEDS: INSULIN LISPRO 100 UNITS/ML PEN SUBCU SCH ×2 (06:51→11:35)
[2018-03-02] MEDS: metFORMIN HCL 500 MG TAB PO SCH (07:16)
[2018-03-02] MEDS: LISINOPRIL 10 MG TAB PO SCH (08:03)
[2018-03-02] MEDS: GEMFIBROZIL 600 MG TAB PO SCH (08:03)
[2018-03-02] MEDS: METOPROLOL SUCCINATE XL 50 MG TAB PO SCH (08:03)
[2018-03-02] MEDS: ASPIRIN (ENTERIC COATED) 81 MG TAB PO SCH (08:03)
[2018-03-02] MEDS ORDERED: METOPROLOL TARTRATE 50 MG TAB PO ONE (08:53)
[2018-03-02] MEDS ORDERED: METOPROLOL TARTRATE 50 MG TAB PO SCH (09:00)
[2018-03-02 12:56] VITALS: BP 156/74; TEMP 98.2; O2SAT 96
--- NOTE | 2018-03-10 08:46 | DS ---
SUPERVISING PHYSICIAN: Caesar Tinajero MD DISCHARGE DIAGNOSIS: 1. Sepsis as noted with tachycardia, fever of 102 on admission but is now afebrile, most likely due to urinary tract infection having failed to respond to outpatient management. 2. Urinary tract infection having failed to respond to antibiotic therapy in outpatient setting requiring initiation of parenteral antibiotics. 3. Elevated troponins, uncertain etiology, likely due to acute stress event with 102 fever with no reported chest pains and EKG showing no acute changes, no ST elevation or T-wave inversion. 4. Hypertension with last echocardiogram noted to be in 2006 with ejection fraction of 60%. 5. Diabetes mellitus, type 2, on oral therapy. 6. History of pulmonary nodule, unchanged on current CT studies. 7. History of frequent urinary tract infections in the the past having a bladder suspension. 8. History of colon cancer in 2008 with a mass in the colon with colon resection performed by Dr. Rowland. 9. Hernias, one in the dome of midline and one supraumbilical without any noted complications on CT. 10. Gastroesophageal reflux disease on proton pump inhibitor with current symptoms including epigastric discomfort and heartburn. HISTORY OF PRESENT ILLNESS: This is an 83-year-old female patient who presented to the Emergency Room on the day of admission after she started running a fever and became shaky at home. She had first experienced the same symptoms on February 25 at which time she was seen in the Emergency Room. She also had some nausea and vomiting for several days. She was treated in the Emergency Room for a urinary tract infection and started on cephalexin. On the date of admission, she had a temperature of 102.0, pulse 138 to 147, blood pressure was showing some elevation at 140/90, saturation 95% on room air. She denied any chest pain or shortness of breath. She was given Tylenol and fluids. She had some nausea and vomiting as well as some abdominal discomfort with some mild to moderate dysuria. Laboratory showed a normal white count but a left shift. Chemistries showed normal electrolytes. Cardiac enzymes showed an elevation in troponin, initially 0.08, repeat at 2 hours was up to 0.13. Urinalysis showed a small amount of blood with small leukocyte esterase and microscopic revealed 10 to 20 RBCs with greater than 50 WBCs and 1+ bacteria with 0 to 7 hyaline casts, trace amount of mucus. She was started on meropenem for a urinary tract infection. Her flu swab was negative for both A&B. EKG showed a normal sinus rhythm after her rate was controlled with a single dose of labetalol. She was not complaining of any chest pain and temperature had responded well to Tylenol and treatment. She was admitted to the Medical/ Surgical Floor. HOSPITAL COURSE: On 02/28/18, she saw Dr. Hannah, vacuum cleaner operator, in his office. Her heart rate did go up and Dr. Hannah recommended she be started on metoprolol. She was to followup with him in two weeks for an echocardiogram. He felt her elevated troponins were more from her septic event than from a cardiac anomaly. She was to be given some Lopressor IV due to the elevated heart rate. She was started on metoprolol succinate at 50 mg daily. Her blood pressure continued to increase and occasionally had elevated heart rate into the low one-teens. Her metoprolol succinate was increased to 100 mg. She has not had a temperature in the last 24 hours. She did require another dose of 5 mg of Lopressor IV to bring her heart rate down and her troponin came down to 0.05. Her electrolytes were stable. Her blood sugars were in the low 120s. Hemoglobin and hematocrit were stable at 10.0 and 29.5. She will be discharged home today in stable condition. DISCHARGE PLAN: The patient will be discharged home in stable condition. She is to resume her previous diet and increase her activity as tolerated. She has a followup appointment with Dr. Hannah on 03/14/18 at [address] Arce , her primary care physician, on 03/08/18 at 9 AM. She will be sent home with [facility] for her urinary tract infection as well as her metoprolol tartrate 100 mg b.i.d. until she sees Dr. Hannah. She is to return to the hospital or followup with Dr. Arce for any problems or complications. DISCHARGE MEDICATIONS: 1. Simvastatin. 2. Omeprazole. 3. Metformin. 4. Lisinopril. 5. Lopid. 6. Aspirin. 7. Clonidine. 8. Sulfa. 9. Metoprolol tartrate 100 mg b.i.d. #[id number] [facility]
== END 2018-03-02 13:45 | disposition home or self-care (01) | DRG 872 ==
LOC: ER 07:55 → MS 15:38
PROVIDERS: ADMIT Nurse Practitioner Family; ATTEND Nurse Practitioner Acute Care
DX: A41.9 Sepsis, unspecified organism (principal); N39.0 Urinary tract infection, site not specified; I10 Essential (primary) hypertension; E11.9 Type 2 diabetes mellitus without complications; R91.1 Solitary pulmonary nodule; K21.9 Gastro-esophageal reflux disease without esophagitis; Z85.038 Personal history of other malignant neoplasm of large intestine; Z79.82 Long term (current) use of aspirin; Z87.440 Personal history of urinary (tract) infections; Z79.84 Long term (current) use of oral hypoglycemic drugs; E78.5 Hyperlipidemia, unspecified; Z87.891 Personal history of nicotine dependence; R74.8 Abnormal levels of other serum enzymes

== ENCOUNTER 2018-04-11 00:47 | Emergency (ER) | payer MEDICARE ==
[2018-04-11 01:05] VITALS: TEMP 98.6; O2SAT 96
--- NOTE | 2018-04-11 01:22 | ED.PDOC ---
History of Present Illness - General Chief Complaint: Blood Pressure Problem Stated Complaint: fast HR, high B/P Time Seen by Provider: 04/11/18 01:08 Source: patient Exam Limitations: no limitations - History of Present Illness Initial Comments: Patient presents after having a rapid heartbeat for about 8 hours. She has had multiple episodes of this for "years" and is currently under the care of a paraffiner, Dr. Hannah, for this condition. She denies ever having taken anticoagulants other than aspirin. She said that she woke up about 90 minutes [employer] and felt sweaty. She took her blood pressure and the systolic was in the 180s. That is why she came here. No other complaints. Timing/Duration: other - 7-8 hours Severity: moderate Improving Factors: nothing Worsening Factors: nothing Associated Symptoms: denies symptoms Allergies/Adverse Reactions: Allergies NO KNOWN ALLERGY Allergy (Verified 04/11/18 01:05) Home Medications: Ambulatory Orders Gemfibrozil [Lopid] 600 mg PO BID 02/25/18 Lisinopril [Prinivil] 10 mg PO BID 02/25/18 Metformin HCl 500 mg PO BIDFD 02/25/18 Simvastatin 80 mg PO DAILY 02/25/18 Aspirin [Aspirin Adult Low Dose] 81 mg PO DAILY 02/27/18 Clonidine HCl 0.1 mg PO BEDTIME 02/27/18 Cephalexin 500 mg PO BEDTIME 04/11/18 Metoprolol Tartrate 50 mg PO BID 04/11/18 Pantoprazole Sodium 40 mg PO DAILY 04/11/18 Review of Systems - Review of Systems Constitutional: States: no symptoms reported EENTM: States: no symptoms reported Respiratory: States: no symptoms reported Cardiology: States: see HPI Gastrointestinal/Abdominal: States: no symptoms reported Genitourinary: States: no symptoms reported Musculoskeletal: States: no symptoms reported Skin: States: no symptoms reported Neurological: States: no symptoms reported Endocrine: States: no symptoms reported Hematologic/Lymphatic: States: no symptoms reported Past Medical History (General) - Patient Medical History Hx Seizures: No Hx Stroke: No Hx Dementia: No Hx Asthma: No Hx of COPD: No Hx Cardiac Disorders: Yes - enlarged ventricles Hx Congestive Heart Failure: No Hx Pacemaker: No Hx Hypertension: Yes Hx Thyroid Disease: No Hx Diabetes: Yes Hx Gastroesophageal Reflux: No Hx Renal Disease: No Hx Cancer: No Hx of HIV: No Hx Hepatitis C: No Hx MRSA: No Surgical History: Hysterectomy - Vaccination History Hx Tetanus, Diphtheria Vaccination: No Hx Influenza Vaccination: Yes - 2018 Hx Pneumococcal Vaccination: Yes - 2018 - Social History Hx Tobacco Use: Yes Hx Chewing Tobacco Use: No Hx Alcohol Use: No Hx Substance Use: No Hx Substance Use Treatment: No Hx Depression: No Hx Physical Abuse: No Hx Emotional Abuse: No Hx Suspected Abuse: No - Female History Patient : No Family Medical History - Family History Maternal Family History: Unknown Hx Family Cancer: Yes - dad-prostate; Hx Family;Other: MOM- age 9090 years old -old age Physical Exam - Physical Exam General Appearance: Alert Eye Exam: bilateral normal Ears, Nose, Throat: normal ENT inspection Neck: non-tender, full range of motion, supple Respiratory: lungs clear, normal breath sounds Cardiovascular/Chest: normal peripheral pulses, irregularly irregular, other - there is a pulse/auscultation mismatch, indicating atrial fibrillation Gastrointestinal/Abdominal: normal bowel sounds, non tender, soft Back Exam: normal inspection, no CVA tenderness Extremity: normal range of motion, non-tender Neurologic: no motor/sensory deficits, alert, normal mood/affect, oriented x 3 Skin Exam: normal color Lymphatic: no adenopathy Progress - Progress Progress: 04/11/18 02:25 Laboratory Tests 04/11/18 04/11/18 04/11/18 01:35 01:35 01:35 WBC 7.3 RBC 4.14 L Hgb 13.2 Hct 40.0 MCV 96.6 MCH 31.8 H MCHC 33.0 RDW 14.4 Plt Count 371 MPV 8.1 Absolute Neuts (auto) 4.10 Absolute Lymphs (auto) 2.00 Absolute Monos (auto) 0.80 Absolute Eos (auto) 0.30 Absolute Basos (auto) 0.10 Neutrophils % 56.2 Lymphocytes % 28.2 Monocytes % 10.7 H Eosinophils % 3.9 Basophils % 1.0 PT 9.7 INR 0.97 PTT (SP) 25.2 Sodium 138 Potassium 5.0 Chloride 103 Carbon Dioxide 28 Anion Gap 12.0 BUN 28 H Creatinine 0.74 BUN/Creatinine Ratio 37.8 H Random Glucose 132 H Serum Osmolality 283.0 Calcium 9.7 Total Bilirubin 0.3 AST 21 ALT 17 Alkaline Phosphatase 98 Creatine Kinase 93 CK-MB (CK-2) 2.2 CK-MB (CK-2) % Not Reportable Troponin I 0.03 B-Natriuretic Peptide Serum Total Protein 7.6 Albumin 4.2 Globulin 3.4 Albumin/Globulin Ratio 1.2 04/11/18 01:35 WBC RBC Hgb Hct MCV MCH MCHC RDW Plt Count MPV Absolute Neuts (auto) Absolute Lymphs (auto) Absolute Monos (auto) Absolute Eos (auto) Absolute Basos (auto) Neutrophils % Lymphocytes % Monocytes % Eosinophils % Basophils % PT INR PTT (SP) Sodium Potassium Chloride Carbon Dioxide Anion Gap BUN Creatinine BUN/Creatinine Ratio Random Glucose Serum Osmolality Calcium Total Bilirubin AST ALT Alkaline Phosphatase Creatine Kinase CK-MB (CK-2) CK-MB (CK-2) % Troponin I B-Natriuretic Peptide 312.0 H* Serum Total Protein Albumin Globulin Albumin/Globulin Ratio The blood presure came down 40 points systolic on its own while she was in the E.D. The palpitations ceased. The atrial fibrillation/tachyarrhythmia is apparently chronic. She is seeing her paraffiner later today. I believe it would be in her best interest to let him determine how to further treat this. E.R. warnings given. Questions were elicited and answered. The patient voiced understanding and agreement with the plan. She promised to see her paraffiner as scheduled today. 04/11/18 02:27 Departure - Departure Clinical Impression: Hypertension, Tachyarrhythmia Disposition: Discharge to Home or Self Care Departure Forms: ED Discharge - Pt. Copy, Patient Portal Self Enrollment Instructions: DI for High Blood Pressure, Atrial Fibrillation Diet: resume usual diet Activity: increase activity as tolerated Referrals: Josh Arce MD [Primary Care Provider] - 1-2 Weeks Home Medications: Ambulatory Orders Gemfibrozil [Lopid] 600 mg PO BID 02/25/18 Lisinopril [Prinivil] 10 mg PO BID 02/25/18 Metformin HCl 500 mg PO BIDFD 02/25/18 Simvastatin 80 mg PO DAILY 02/25/18 Aspirin [Aspirin Adult Low Dose] 81 mg PO DAILY 02/27/18 Clonidine HCl 0.1 mg PO BEDTIME 02/27/18 Cephalexin 500 mg PO BEDTIME 04/11/18 Metoprolol Tartrate 50 mg PO BID 04/11/18 Pantoprazole Sodium 40 mg PO DAILY 04/11/18 Additional Instructions: See your paraffiner today, as scheduled, for further treatment. Return to the E.R. if symptoms worsen or for new symptoms.
[2018-04-11 02:34] VITALS: BP 143/82
--- NOTE | 2018-04-11 05:03 | RAD ---
EXAM: Single view chest. INDICATION: Tachycardia. COMPARISON: Chest x-ray: 02/27/2018. FINDINGS: Cardiac silhouette: Mildly enlarged Jeannine: Unremarkable. Lobar consolidation: None. Pleural effusion: None. Pneumothorax: None. Other: None. Bones: Unremarkable. Other: None. IMPRESSION: 1. No acute cardiopulmonary process. Electronically signed by: Mode Asher MD 04/11/2018 4:05 AM [facility] Workstation: [id number]
== END 2018-04-11 02:35 | disposition home or self-care (01) ==
LOC: ER 00:47
DX: I10 Essential (primary) hypertension (principal); R00.0 Tachycardia, unspecified; E11.9 Type 2 diabetes mellitus without complications; Z87.891 Personal history of nicotine dependence; Z79.899 Other long term (current) drug therapy; Z79.84 Long term (current) use of oral hypoglycemic drugs; Z79.82 Long term (current) use of aspirin

== ENCOUNTER → 2018-06-30 | Outpatient (CLI) | payer MEDICARE ==
--- NOTE | 2018-06-30 16:07 | MRI ---
MRI right knee without contrast INDICATION: Knee pain swelling chronic TECHNIQUE: Noncontrast MR imaging right knee FINDINGS: Cruciate ligaments are intact. Extensor tendons are intact. Large joint effusion with synovitis/debris. Diffuse horizontal cleavage type degenerative tear throughout the medial meniscus with maceration posterior horn to the root. There is a developing area of subchondral stress/insufficiency fracture in the medial tibial plateau with diffuse marrow edema. There is also diffuse up to grade 4 chondrosis in the medial tibiofemoral compartment with mild joint space narrowing. Collateral ligaments are intact. There is a filling defect in the suprapatellar compartment likely synovial debris or hemorrhage/synovitis. Normal patellofemoral alignment. Trace Diaz's cyst fluid. Multifocal debris/synovitis in the remainder the knee with multiple small filling defects. IMPRESSION: Diffuse horizontal cleavage type degenerative tear medial meniscus with developing stress or insufficiency fracture in the medial tibial plateau Diffuse chondrosis up to grade 4 medial tibiofemoral compartment Large joint effusion with synovitis/debris multifocal Electronically signed by: Romulo Fairchild MD 06/30/2018 4:04 PM [facility]
== END ==
LOC: MRI 08:54
PROVIDERS: ATTEND Family Medicine
DX: S83.241A Other tear of medial meniscus, current injury, right knee, initial encounter (principal); M25.461 Effusion, right knee; M94.8X6 Other specified disorders of cartilage, lower leg

== ENCOUNTER → 2018-07-13 | Outpatient (CLI) | payer MEDICARE ==
--- NOTE | 2018-07-13 09:48 | RAD ---
EXAM DESCRIPTION: Pelvis CLINICAL HISTORY: PAIN IN UNSPECIFIED HIP COMPARISON: CT the abdomen pelvis dated February 2018 TECHNIQUE: AP pelvis FINDINGS: Mild degenerative changes are observed in both hips and in the lower lumbar spine. Phleboliths are observed in the pelvis. Mild degenerative changes are seen in the pubic symphysis. No fracturing is detected. IMPRESSION: Mild degenerative changes are observed. Electronically signed by: Jonny Conde MD 07/13/2018 9:45 AM [facility]
== END ==
LOC: RAD 08:28
PROVIDERS: ATTEND Orthopaedic Surgery
DX: M25.559 Pain in unspecified hip (principal)

== ENCOUNTER → 2018-12-18 | Outpatient (CLI) | payer MEDICARE | LOC: GMA MATASK 10:28 | PROVIDERS: ATTEND Family Medicine | DX: R53.82 Chronic fatigue, unspecified (principal); E11.9 Type 2 diabetes mellitus without complications; I10 Essential (primary) hypertension; M25.50 Pain in unspecified joint ==

== ENCOUNTER 2019-10-08 09:25 | Emergency (ER) | payer MEDICARE, OTHER ==
--- NOTE | 2019-10-08 09:39 | ED.PDOC ---
History of Present Illness - General Time Seen by Provider: 10/08/19 09:38 Source: patient - History of Present Illness Initial Comments: 84 YO female with PMH of HTN, DM 2, A. fib, COPD, GERD who presents with CC of lip and face swelling. Patient reports she noticed onset at 6 AM today when she woke up of swelling to her lower lip. Just prior to arrival she reported the swelling had spread to her right cheek. Reports moderate severity, no pain rep orted, unknown exacerbating or alleviating factors. No medications taken for relief prior to arrival. No history of similar symptoms reported in the past. She thought she may have been bitten by a bug but did not see any in her bed. Denies any tongue or throat swelling. Denies any chest pain, dyspnea, fevers, chills, sore throat, abdominal pain, nausea, vomiting, diarrhea, leg swelling, rashes, itching. Denies any new exposures or medications. She does take lisinopril twice daily for several years now but reports no issues prior to now. She reports taking all of her usual morning medications before coming to the ED. PCP is Dr. Gordon. Allergies/Adverse Reactions: Allergies NO KNOWN ALLERGY Allergy (Verified 10/08/19 09:41) Home Medications: Ambulatory Orders RX: Gemfibrozil [Lopid] 600 mg PO BID 02/25/18 RX: Lisinopril [Prinivil] 10 mg PO BID 02/25/18 RX: Metformin HCl [Metformin Hydrochloride] 500 mg PO BIDFD 02/25/18 RX: Simvastatin 80 mg PO DAILY 02/25/18 RX: Aspirin [Aspirin Adult Low Dose] 81 mg PO DAILY 02/27/18 RX: Clonidine HCl 0.1 mg PO BEDTIME 02/27/18 RX: Cephalexin 500 mg PO BEDTIME 04/11/18 RX: Metoprolol Tartrate 50 mg PO BID 04/11/18 RX: Pantoprazole Sodium 40 mg PO DAILY 04/11/18 RX: Losartan Potassium 25 mg PO DAILY 30 Days #30 tab 10/08/19 Review of Systems - Review of Systems Review of Systems: 10/08/19 09:57 as per HPI All other Systems: Reviewed and Negative Past Medical History (General) - Patient Medical History Hx Seizures: No Hx Stroke: No Hx Dementia: No Hx Asthma: No Hx of COPD: No Hx Cardiac Disorders: Yes - enlarged ventricles Hx Congestive Heart Failure: No Hx Pacemaker: No Hx Hypertension: Yes Hx Thyroid Disease: No Hx Diabetes: Yes Hx Gastroesophageal Reflux: No Hx Renal Disease: No Hx Cancer: No Hx of HIV: No Hx Hepatitis C: No Hx MRSA: No - Vaccination History Hx Tetanus, Diphtheria Vaccination: No Hx Influenza Vaccination: Yes - 2018 Hx Pneumococcal Vaccination: Yes - 2018 - Social History Hx Tobacco Use: Yes Hx Chewing Tobacco Use: No Hx Alcohol Use: No Hx Substance Use: No Hx Substance Use Treatment: No Hx Depression: No Hx Physical Abuse: No Hx Emotional Abuse: No Hx Suspected Abuse: No - Female History Patient : No Family Medical History - Family History Maternal Family History: Unknown Hx Family Cancer: Yes - dad-prostate; Hx Family;Other: MOM- age 9090 years old -old age Physical Exam - Physical Exam General Appearance: Alert, Comfortable, No apparent distress Eye Exam: bilateral normal Ears, Nose, Throat: hearing grossly normal, other - Moderate swelling noted to lower lip and right cheek without redness, warmth, induration, tenderness. No swelling of the tongue, mouth, tonsils, throat. Neck: non-tender, full range of motion, supple, normal inspection Respiratory: lungs clear, normal breath sounds, no respiratory distress, no accessory muscle use Cardiovascular/Chest: normal peripheral pulses, regular rate, rhythm, no edema, no gallop, no JVD, no murmur Peripheral Pulses: radial,right: 2+, radial,left: 2+ Gastrointestinal/Abdominal: non tender, soft, no organomegaly, hernia Back Exam: normal inspection, no vertebral tenderness Extremity: normal range of motion, non-tender, normal inspection, no pedal edema, no calf tenderness, normal capillary refill Neurologic: pediatric psychiatrist II-XII nml as tested, no motor/sensory deficits, alert, normal mood/affect, oriented x 3 Skin Exam: normal color, warm/dry Progress - Progress Progress: 10/08/19 09:59 Angioedema -Etiology uncertain. 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 Consider also allergic angioedema, hereditary angioedema, idiopathic angioedema, other. -Blood pressure elevated to 220s/80s on arrival, remainder of vitals within normal limits. Patient stable, NAD. -Will obtain basic blood work, cardiac work-up given elevated blood pressure. Monitor closely in the ED, frequent reassessments. -Place PIV, give Benadryl 50 mg IV. Check POC glucose, consider IV steroids. Consider IV antihypertensive if blood pressure remains elevated. -Will consult with patient's PCP upon ED discharge to discuss her medications and follow-up. 10/08/19 10:36 -Patient reexamined, remained stable, NAD. BP remains elevated 200/91, remainder of vitals WNL. -Lab work largely unremarkable, glucose well controlled. Trop WNL. -We will give another dose of labetalol 10 mg IV. We will give Decadron 4 mg IV for persistent angioedema. 10/08/19 11:26 -Patient reexamined, remains stable. Lip swelling is now moderately improved following IV steroids. BP is improved to 160s/60s. -Spoke with patient's PCP, Dr. 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 He agrees. We will have the patient stop taking her lisinopril and change to losartan 25 mg once daily. He will see the patient in his clinic in the next 1 to 2 days for follow-up visit. -DC to home in good condition, return warnings discussed at length. Uli Boyce MD Billing #[id number] 10/08/19 09:51 IV Care:Saline Lock per Protoc QSHIFT Telemetry .ONCE Sodium Chloride 0.9% (Flush) [Saline Flush Syringe] 10 ml IV PRN PRN 10/08/19 10:00 EKG STAT 10/09/19 09:00 Pulse Ox Daily Laboratory Results - last 24 hr 10/08/19 10/08/19 10/08/19 09:40 09:40 09:40 WBC 6.2 RBC 4.06 L Hgb 13.1 Hct 39.6 MCV 97.4 MCH 32.2 H MCHC 33.0 RDW 12.9 Plt Count 210 MPV 9.9 Absolute Neuts (auto) 3.50 Absolute Lymphs (auto) 1.90 Absolute Monos (auto) 0.50 Absolute Eos (auto) 0.20 Absolute Basos (auto) 0.10 Neutrophils % 56.6 Lymphocytes % 30.8 Monocytes % 8.0 Eosinophils % 3.7 Basophils % 0.9 Sodium 136 Potassium 5.0 Chloride 106 Carbon Dioxide 22 Anion Gap 13.0 BUN 21 H Creatinine 0.66 BUN/Creatinine Ratio 31.8 H POC Glucose Random Glucose 125 H Serum Osmolality 276.4 Calcium 9.3 Troponin I B-Natriuretic Peptide 181.0 H 10/08/19 10/08/19 09:40 09:40 WBC RBC Hgb Hct MCV MCH MCHC RDW Plt Count MPV Absolute Neuts (auto) Absolute Lymphs (auto) Absolute Monos (auto) Absolute Eos (auto) Absolute Basos (auto) Neutrophils % Lymphocytes % Monocytes % Eosinophils % Basophils % Sodium Potassium Chloride Carbon Dioxide Anion Gap BUN Creatinine BUN/Creatinine Ratio POC Glucose 110 H Random Glucose Serum Osmolality Calcium Troponin I < 0.02 B-Natriuretic Peptide - EKG/XRAY/CT EKG: Sinus - Normal sinus rhythm with sinus arrhythmia, HR 60, no ST elevations or Q waves noted, left axis deviation present, intervals normal, compared to 04/11/2018 EKG appears largely unchanged. XRAY: chest - No acute processes per my read. Large lung volumes noted likely indicative of COPD. Departure - Departure Clinical Impression: Hypertensive urgency CHEL inhibitor-aggravated angioedema Qualifiers: Encounter type: initial encounter Qualified Code(s): T78.3XXA - Angioneurotic edema, initial encounter Time of Disposition: 11:23 Disposition: Discharge to Home or Self Care Condition: Good Departure Forms: ED Discharge - Pt. Copy, Patient Portal Self Enrollment Instructions: Angioedema (DC) Diet: low salt diet Activity: increase activity as tolerated Referrals: Ayo Osborne MD [Primary Care Provider] - 1-2 Days Prescriptions: RX: Losartan Potassium 25 mg PO DAILY 30 Days #30 tab Home Medications: Ambulatory Orders RX: Gemfibrozil [Lopid] 600 mg PO BID 02/25/18 RX: Lisinopril [Prinivil] 10 mg PO BID 02/25/18 RX: Metformin HCl [Metformin Hydrochloride] 500 mg PO BIDFD 02/25/18 RX: Simvastatin 80 mg PO DAILY 02/25/18 RX: Aspirin [Aspirin Adult Low Dose] 81 mg PO DAILY 02/27/18 RX: Clonidine HCl 0.1 mg PO BEDTIME 02/27/18 RX: Cephalexin 500 mg PO BEDTIME 04/11/18 RX: Metoprolol Tartrate 50 mg PO BID 04/11/18 RX: Pantoprazole Sodium 40 mg PO DAILY 04/11/18 RX: Losartan Potassium 25 mg PO DAILY 30 Days #30 tab 10/08/19 Additional Instructions: Quit taking your lisinopril blood pressure medication as directed as it may be the cause of your facial swelling. Begin taking your new blood pressure medicine losartan 25 mg once daily with the first dose being tomorrow morning. You may continue to take Benadryl 25 to 50 mg every 4-6 hours as needed for swelling or itching symptoms. Quit taking the Benadryl if you are having trouble urinating or any other concerning symptoms. Return to the ED if you develop any symptoms of worsening facial swelling, tongue swelling, throat swelling, shortness of breath, chest pain, etc. Follow-up with Dr. Gordon in 1-2 days for repeat evaluation of facial swelling and blood pressure check. Call his office this afternoon to schedule the appointment.
[2019-10-08 09:41] VITALS: TEMP 97.4
[2019-10-08] MEDS ORDERED: SODIUM CHLORIDE 0.9% (FLUSH) 10 ML SYG IV PRN (09:51)
[2019-10-08] MEDS ORDERED: diphenhydrAMINE HCL 50 MG/ML VIAL IV ONE (09:52)
[2019-10-08] MEDS ORDERED: LABETALOL INJ 5 MG/ML VIAL IV ONE ×2 (10:06→10:35)
--- NOTE | 2019-10-08 10:21 | RAD ---
EXAM DESCRIPTION: Chest,1 View CLINICAL HISTORY: elevated blood pressure, angioedema COMPARISON: Chest radiograph dated April 11, 2018 TECHNIQUE: One view radiograph of the chest FINDINGS: Calcific atherosclerosis of the aortic arch. Cardiac silhouette again shows cardiomegaly. Pulmonary vascularity is within normal limits. Minimal linear opacity in bilateral lung bases most compatible with atelectasis. Otherwise, lungs show no confluent infiltrates. Costophrenic angles are sharp. No pneumothorax. No acute osseous abnormality. IMPRESSION: 1. Stable cardiomegaly without overt congestive heart failure. 2. Minimal bibasilar atelectasis. Otherwise, lungs show no confluent infiltrates. Electronically signed by: Jonny Crain MD 10/08/2019 10:19 AM CDT
[2019-10-08] MEDS ORDERED: DEXAMETHASONE INJ 4 MG/ML VIAL IV ONE (10:35)
[2019-10-08 10:42] VITALS: O2SAT 96
[2019-10-08 11:39] VITALS: BP 159/89
== END 2019-10-08 11:39 | disposition home or self-care (01) ==
LOC: ER 09:25
DX: I16.0 Hypertensive urgency (principal); T78.3XXA Angioneurotic edema, initial encounter; E11.9 Type 2 diabetes mellitus without complications; I48.91 Unspecified atrial fibrillation; K21.9 Gastro-esophageal reflux disease without esophagitis; J44.9 Chronic obstructive pulmonary disease, unspecified; Z87.891 Personal history of nicotine dependence; Z79.899 Other long term (current) drug therapy; Y92.9 Unspecified place or not applicable
CPT/HCPCS: 36415; 71045; 80048; 82948; 83880; 84484; 85025; 93005; 94760; A4216; J1100; J1200

== ENCOUNTER → 2019-12-07 | Outpatient (CLI) | payer OTHER ==
--- NOTE | 2019-12-07 14:48 | US ---
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 There is no right-sided hydronephrosis or obstructing nephrolithiasis. There is no right renal cortical thinning or perinephric fluid. 0.9 cm uncomplicated cortical cyst superior pole right kidney. No additional right renal mass. The left kidney measures 9.2cm in length. There is no left-sided hydronephrosis or obstructing nephrolithiasis. Mild left renal cortical thinning. 2 tiny uncomplicated left renal cortical cysts. The bladder is unremarkable. Bilateral ureteral jets were noted during this exam. No abdominal aortic aneurysm. IMPRESSION: Small uncomplicated bilateral renal cysts and renal asymmetry, otherwise unremarkable exam. No suspicious renal mass. Electronically signed by: Eric Olsen MD 12/07/2019 2:46 PM CDT
== END ==
LOC: US 07:59
PROVIDERS: ATTEND Urology
DX: N28.1 Cyst of kidney, acquired (principal)

== ENCOUNTER 2020-02-20 14:57 | Observation (INO) | payer OTHER ==
[2020-02-20] MEDS ORDERED: SODIUM CHLORIDE 0.9% (FLUSH) 10 ML SYG IV PRN ×2 (15:17→18:42)
--- NOTE | 2020-02-20 15:30 | CT ---
EXAM DESCRIPTION: CT Head CLINICAL HISTORY: headache, slurred speech COMPARISON: 01/06/2020 TECHNIQUE: Multiple axial images of the head without contrast. Multiplanar reformatted images. This exam was performed according to our departmental dose-optimization program, which includes automated exposure control, adjustment of the mA and/or kV according to patient size and/or use of iterative reconstruction technique. FINDINGS: There is no CT evidence of intracranial hemorrhage, mass effect, or large territory infarction. Moderate to severe volume loss. Severe confluent supratentorial white matter hypodensities. There are no abnormal extra-axial fluid collections. Calcific plaque in the visualized arteries. There is no acute calvarial defect. The visualized paranasal sinuses and the mastoids are clear. IMPRESSION: 1. No CT evidence of an acute intracranial abnormality. If there is concern for an acute or subacute infarct, consider follow-up MRI. 2. Advanced senescent changes. Electronically signed by: Vasile Downing MD 02/20/2020 3:29 PM CDT
--- NOTE | 2020-02-20 15:37 | RAD ---
Procedure: XR CHEST 1 VIEW Exam Date: 02/20/2020 Ordering Provider: Dwain Elliott Clinical Indication: expressive aphasia Comparison: 10/08/2019 Findings: Cardiomediastinal silhouette is within normal limits. Aortic calcification. No focal lung consolidation. No pleural effusion. No pneumothorax. No acute osseous abnormality. Impression: 1. No acute abnormality in the chest. Electronically signed by: Mao Ayon MD 02/20/2020 3:35 PM CDT
[2020-02-20] MEDS ORDERED: LABETALOL INJ 5 MG/ML VIAL IV ONE (15:52)
--- NOTE | 2020-02-20 17:54 | ED.PDOC ---
History of Present Illness - General Chief Complaint: Neuro Symptoms/Deficits Stated Complaint: headache, slurred speech Time Seen by Provider: 02/20/20 15:16 Source: patient, RN notes reviewed, Vital Signs reviewed, family - son at the end of the visit Exam Limitations: no limitations - History of Present Illness Initial Comments: Patient is an 84-year-old white female who presents with complaints of an expressive aphasia starting yesterday morning. Patient states she was seen by her engineering lab technician yesterday and he did not change her medications. Patient was noted to be quite hypertensive with a blood pressure systolic 225 over diastolic 115. Patient denies any weakness or numbness. Patient does complain of a headache, throbbing in nature, severe in intensity, starting this a.m. Timing/Duration: 24 hours, constant Severity: moderate Improving Factors: nothing Worsening Factors: nothing Associated Symptoms: headaches, other - expressive aphasia Allergies/Adverse Reactions: Allergies NO KNOWN ALLERGY Allergy (Verified 01/06/20 20:10) Home Medications: Ambulatory Orders Gemfibrozil [Lopid] 600 mg PO BID 02/25/18 Lisinopril [Prinivil] 10 mg PO BID 02/25/18 Metformin HCl [Metformin Hydrochloride] 500 mg PO BIDFD 02/25/18 Simvastatin 80 mg PO DAILY 02/25/18 Aspirin [Aspirin Adult Low Dose] 81 mg PO DAILY 02/27/18 Clonidine HCl 0.1 mg PO BEDTIME 02/27/18 Cephalexin 500 mg PO BEDTIME 04/11/18 Metoprolol Tartrate 50 mg PO BID 04/11/18 Pantoprazole Sodium 40 mg PO DAILY 04/11/18 Losartan Potassium 25 mg PO DAILY 30 Days #30 tab 10/08/19 Azelastine Nasal [place] [Astelin Nasal [place]] 137 mcg BNAS BID #1 bttl 01/06/20 Ciprofloxacin [Cipro] 500 mg PO BID #14 tab 01/06/20 Review of Systems - Review of Systems Constitutional: States: no symptoms reported, see HPI. Denies: chills, fever, malaise, weakness EENTM: States: no symptoms reported. Denies: eye pain, blurred vision, double vision Respiratory: States: no symptoms reported. Denies: cough, short of breath, wheezing Cardiology: Denies: chest pain, palpitations Gastrointestinal/Abdominal: States: no symptoms reported. Denies: abdominal pain, nausea, vomiting Genitourinary: States: no symptoms reported. Denies: dysuria, frequency Musculoskeletal: States: no symptoms reported. Denies: back pain, joint pain, neck pain Skin: States: no symptoms reported. Denies: change in color, rash Neurological: States: see HPI, headache, other - expressive aphasia Endocrine: States: no symptoms reported. Denies: increased hunger, increased thirst, increased urine Hematologic/Lymphatic: States: no symptoms reported All other Systems: No Change from Baseline Past Medical History (General) - Patient Medical History Hx Seizures: No Hx Stroke: No Hx Dementia: No Hx Asthma: No Hx of COPD: No Hx Cardiac Disorders: Yes - enlarged ventricles, AFib Hx Congestive Heart Failure: No Hx Pacemaker: No Hx Hypertension: Yes Hx Thyroid Disease: No Hx Diabetes: Yes Hx Gastroesophageal Reflux: No Hx Renal Disease: No Hx Cancer: No Hx of HIV: No Hx Hepatitis C: No Hx MRSA: No - Vaccination History Hx Tetanus, Diphtheria Vaccination: No Hx Influenza Vaccination: Yes - 2018 Hx Pneumococcal Vaccination: Yes - 2018 - Social History Hx Tobacco Use: Yes Hx Chewing Tobacco Use: No Hx Alcohol Use: No Hx Substance Use: No Hx Substance Use Treatment: No Hx Depression: No Hx Physical Abuse: No Hx Emotional Abuse: No Hx Suspected Abuse: No - Female History Patient : No Family Medical History - Family History Maternal Family History: Unknown Living Status: Hx Family Cancer: Yes - dad-prostate; Hx Family;Other: MOM- age 9090 years old -old age Physical Exam - Physical Exam General Appearance: Alert, Anxious, Obvious distress, Well Developed, Well Groomed, Well Hydrated, Well Nourished Eye Exam: bilateral normal Ears, Nose, Throat: hearing grossly normal, normal ENT inspection, normal pharynx Neck: non-tender, full range of motion, supple Respiratory: chest non-tender, lungs clear, normal breath sounds, no respiratory distress, no accessory muscle use Cardiovascular/Chest: normal peripheral pulses, regular rate, rhythm, no edema, no gallop, no JVD, no murmur Peripheral Pulses: radial,right: 2+, radial,left: 2+ Gastrointestinal/Abdominal: normal bowel sounds, non tender, soft, no organomegaly, no pulsatile mass Back Exam: normal inspection, no CVA tenderness, no vertebral tenderness Extremity: normal range of motion, non-tender, normal inspection Neurologic: trimmer sawyer II-XII nml as tested, no motor/sensory deficits, alert, oriented x 3, aphasia - expressive, other - anxious. Intermittent mild expressive aphasia. Skin Exam: normal color, warm/dry Lymphatic: no adenopathy Progress - Results/Orders Results/Orders: EXAM DESCRIPTION: CT Head CLINICAL HISTORY: headache, slurred speech COMPARI SON: 01/06/2020 TECHNIQUE: Multiple axial images of the head without contrast. Multiplanar reformatted images. This exam was performed according to our departmental dose-optimization program, which includes automated exposure control, adjustment of the mA and/or kV according to patient size and/or use of iterative reconstruction technique. FINDINGS: There is no CT evidence of intracranial hemorrhage, mass effect, or large territory infarction. Moderate to severe volume loss. Severe confluent supratentorial white matter hypodensities. There are no abnormal extra-axial fluid collections. Calcific plaque in the visualized arteries. There is no acute calvarial defect. The visualized paranasal sinuses and the mastoids are clear. IMPRESSION: 1. No CT evidence of an acute intracranial abnormality. If there is concern for an acute or subacute infarct, consider follow-up MRI. 2. Advanced senescent changes. Electronically signed by: Vasile Downing MD 02/20/2020 3:29 PM CDT Procedure: XR CHEST 1 VIEW Exam Date: 02/20/2020 Ordering Provider: Dwain Elliott Clinical Indication: expressive aphasia Comparison: 10/08/2019 Findings: Cardiomediastinal silhouette is within normal limits. Aortic calcification. No focal lung consolidation. No pleural effusion. No pneumothorax. No acute osseous abnormality. Impression: 1. No acute abnormality in the chest. Electronically signed by: Mao Ayon MD 02/20/2020 3:35 PM CDT EKG performed 20 February 2020 at 1517 hrs.: Normal sinus rhythm 67 bpm, normal axis deviation, nonspecific ST changes laterally, abnormal EKG. No previous EKG available for comparison. 02/20/20 15:17 IV Care:Saline Lock per Protoc QSHIFT Telemetry .ONCE Sodium Chloride 0.9% (Flush) [Saline Flush Syringe] 10 ml IV PRN PRN 02/20/20 15:30 EKG STAT Laboratory Results - last 24 hr 02/20/20 02/20/20 02/20/20 15:30 15:30 15:30 WBC 6.0 RBC 3.97 L Hgb 13.0 Hct 38.2 MCV 96.2 MCH 32.7 H MCHC 34.0 RDW 12.9 Plt Count 383 MPV 7.7 Absolute Neuts (auto) 3.80 Absolute Lymphs (auto) 1.50 Absolute Monos (auto) 0.40 Absolute Eos (auto) 0.10 Absolute Basos (auto) 0.00 Neutrophils % 64.2 Lymphocytes % 25.9 Monocytes % 6.7 Eosinophils % 2.4 Basophils % 0.8 PT 11.4 H INR 1.15 PTT (SP) 30.8 Sodium 138 Potassium 4.3 Chloride 105 Carbon Dioxide 23 Anion Gap 14.3 BUN 21 H Creatinine 0.79 BUN/Creatinine Ratio 26.6 H POC Glucose Random Glucose 173 H Serum Osmolality 282.8 Calcium 9.5 Total Bilirubin 0.8 AST 19 ALT 16 Alkaline Phosphatase 75 Creatine Kinase 53 CK-MB (CK-2) 1.6 CK-MB (CK-2) % Not Reportable Troponin I < 0.02 Serum Total Protein 7.6 Albumin 4.4 Globulin 3.2 Albumin/Globulin Ratio 1.4 02/20/20 15:30 WBC RBC Hgb Hct MCV MCH MCHC RDW Plt Count MPV Absolute Neuts (auto) Absolute Lymphs (auto) Absolute Monos (auto) Absolute Eos (auto) Absolute Basos (auto) Neutrophils % Lymphocytes % Monocytes % Eosinophils % Basophils % PT INR PTT (SP) Sodium Potassium Chloride Carbon Dioxide Anion Gap BUN Creatinine BUN/Creatinine Ratio POC Glucose 165 H Random Glucose Serum Osmolality Calcium Total Bilirubin AST ALT Alkaline Phosphatase Creatine Kinase CK-MB (CK-2) CK-MB (CK-2) % Troponin I Serum Total Protein Albumin Globulin Albumin/Globulin Ratio Departure - Departure Clinical Impression: Hypertensive encephalopathy CVA (cerebral vascular accident) Qualifiers: CVA mechanism: unspecified Qualified Code(s): I63.9 - Cerebral infarction, unspecified Time of Disposition: 18:02 Disposition: Admit Patient Condition: Fair Departure Forms: ED Discharge - Pt. Copy, Patient Portal Self Enrollment Diet: low fat, low cholesterol Activity: as per physical therapy, increase activity as tolerated Referrals: Ayo Osborne MD [Primary Care Provider] - 1-2 Weeks Home Medications: Ambulatory Orders Gemfibrozil [Lopid] 600 mg PO BID 02/25/18 Lisinopril [Prinivil] 10 mg PO BID 02/25/18 Metformin HCl [Metformin Hydrochloride] 500 mg PO BIDFD 02/25/18 Simvastatin 80 mg PO DAILY 02/25/18 Aspirin [Aspirin Adult Low Dose] 81 mg PO DAILY 02/27/18 Clonidine HCl 0.1 mg PO BEDTIME 02/27/18 Cephalexin 500 mg PO BEDTIME 04/11/18 Metoprolol Tartrate 50 mg PO BID 04/11/18 Pantoprazole Sodium 40 mg PO DAILY 04/11/18 Losartan Potassium 25 mg PO DAILY 30 Days #30 tab 10/08/19 Azelastine Nasal [place] [Astelin Nasal [place]] 137 mcg BNAS BID #1 bttl 01/06/20 Ciprofloxacin [Cipro] 500 mg PO BID #14 tab 01/06/20 Critical Care Note - Critical Care Note Total Time (mins): 35 Decision To Admit - Decistion To Admit Decision to Admit Date: 02/20/20 Decision to Admit Time: 17:15
[2020-02-20] MEDS ORDERED: DEXTROSE 50% 25 GM/50 ML SYG IV PRN (18:42)
[2020-02-20] MEDS ORDERED: GLUCAGON INJ 1 MG VIAL SUBCU PRN (18:42)
[2020-02-20] MEDS ORDERED: ONDANSETRON INJ 4 MG/2 ML VIAL IV PRN (18:42)
[2020-02-20] MEDS ORDERED: IV SET AND CAP CHANGE INJ INJ SCH (19:00)
[2020-02-20] MEDS ORDERED: ENOXAPARIN SODIUM 40 MG/0.4 ML SYG SUBCU SCH (19:00)
[2020-02-20] MEDS ORDERED: ENOXAPARIN SODIUM 40 MG/0.4 ML SYG SUBCU ONE (20:38)
[2020-02-20] MEDS: INSULIN LISPRO 100 UNITS/ML PEN SUBCU SCH (21:00)
--- NOTE | 2020-02-20 22:51 | CT ---
PROCEDURE: CTA Head (accession [id number]), CTA Neck (accession [id number]) CLINICAL HISTORY: 84 years Female Ischemic Stroke (Subacute) COMPARISON: None. TECHNIQUE: Contiguous axial images obtained through the head and neck during the infusion of IV contrast. Reformatted images obtained. 3-D MIP reformatted images obtained. NASCET criteria utilized for the evaluation of any stenotic lesions. This exam was performed according to our department optimization program which includes automated exposure control, adjustment of the mA and/or kv according to patient size and/or use of iterative reconstruction technique. FINDINGS: There is scarring in the right lung apex. There is mild atrophy. Microvascular ischemic changes. Old infarct in the right basal ganglia region. There is dental disease. Degenerative changes in the spine. There is scattered mild atherosclerotic plaquing. The aortic arch and proximal great vessels are incompletely visualized. The visualized portions of the proximal great vessels appear widely patent. There is 50% narrowing of the right vertebral artery at the C6-7 level secondary to osteophytic indentation. The right vertebral artery otherwise appears widely patent. The left vertebral artery appears widely patent. There is calcific plaquing at the right carotid bifurcation without hemodynamically significant stenosis. There is calcific plaquing in the cavernous and supraclinoid portions of the right internal carotid artery without significant stenosis. There is mild calcific plaquing at the left carotid bifurcation without hemodynamically significant stenosis. There is calcific plaquing in the cavernous and supraclinoid portions of the left internal carotid artery without hemodynamically significant stenosis. No aneurysms or vascular malformations are identified. There is a focal area of severe stenosis within a left M2 branch versus adherent thrombus. There is otherwise appears to be good filling of the larger intracranial arterial branches. IMPRESSION: There are atherosclerotic changes without hemodynamically significant stenosis of the carotid bifurcations. There is 50% narrowing of the right vertebral artery at the C6-7 level secondary to indentation on the vertebral artery by an osteophyte. There is a focal area of severe stenosis within a left M2 branch versus adherent thrombus. There otherwise appears to be good filling of the larger intracranial arterial branches. The findings were called to Jaxon Yanez NP at 10:41 PM. Electronically signed by: Dwain Rucker MD 02/20/2020 10:49 PM CDT
[2020-02-20] MEDS ORDERED: ACETAMINOPHEN 325 MG TAB PO PRN (23:25)
[2020-02-21] MEDS ORDERED: cefTRIAXone SODIUM 1 GM in SODIUM CHL 0.9% 50ML MIN-BAG+ 50 ML IVPB SCH (01:00)
[2020-02-21] MEDS ORDERED: SODIUM CHL 0.9% 50ML MIN-BAG+ 50 ML IVPB ONE (01:26)
[2020-02-21] MEDS ORDERED: cefTRIAXone SODIUM 1 GM VIAL ONE (01:26)
[2020-02-21] MEDS ORDERED: PANTOPRAZOLE SODIUM IV 40 MG VIAL IV SCH (06:30)
[2020-02-21] MEDS: INSULIN LISPRO 100 UNITS/ML PEN SUBCU SCH ×2 (07:20→11:57)
--- NOTE | 2020-02-21 07:44 | MRI ---
EXAM DESCRIPTION: Brain w/oContrast CLINICAL HISTORY: Ischemic Stroke (Subacute) COMPARISON: CT February 20, 2020 TECHNIQUE: Non contrast MRI of the brain is performed using multiplanar multi sequence technique. "Fast" protocol was used due to claustrophobia. FINDINGS: Diffusion: There is an approximately 2 cm area of restricted diffusion within the left centrum semiovale and mildly involving the lentiform nucleus. Hemorrhage:No intracranial hemorrhage. Ventricles:The ventricles are normal in size. Subdural/epidural fluid:No abnormal fluid collection. Brain: There is a moderate degree of FLAIR hyperintensity throughout the deep white matter of the cerebral hemispheres bilaterally. This finding is consistent with chronic microvascular ischemia. There is mild generalized cerebral volume loss. The pituitary, brainstem, and cerebellum have a normal appearance. Expected flow voids are present within the major intracranial arteries. The dural venous sinuses are grossly patent. No orbital abnormality is seen. Paranasal sinuses:Free of fluid. IMPRESSION: 2 cm area of acute ischemia within the left centrum semiovale white matter. Electronically signed by: Odilon Bey MD 02/21/2020 7:43 AM CDT
[2020-02-21] MEDS ORDERED: ASPIRIN (CHEWABLE) 81 MG TAB PO ONE (11:11)
[2020-02-21 11:54] VITALS: BP 150/70; TEMP 98.5; O2SAT 95
--- NOTE | 2020-02-22 09:29 | SSS ---
SUPERVISING PHYSICIAN: Ceasar Tinajero MD DATE OF ADMISSION: 02/20/20 DATE OF DISCHARGE: 02/21/20 ADMISSION DIAGNOSIS: 1. Subacute ischemic stroke. 2. Hypertension. 3. Chronic atrial fibrillation on Xarelto. DISCHARGE DIAGNOSIS: 1. Subacute ischemic stroke involving the left M2 segment of the middle cerebral artery with a transient Broca's aphasia with no residual neurological deficits at discharge. 2. Hypertension. 3. Chronic atrial fibrillation on Xarelto. HISTORY OF PRESENT ILLNESS: Ms. aDy is an 84-year-old female patient who presented to the ER on 02/20/20 complaining of some aphasia for greater than 24 hours. She woke up the day before in the morning with trouble talking. She presented to the Emergency Room with minimal deficits. She had a blood pressure of 215/110 initially. Her initial CTA of the brain was negative. Her NIHSS was 1. She endorses that over the last 48 hours, she noticed what she felt was some inability to make her words and she thought maybe some lower extremity weakness. She had actually noted that she had fallen the day before to her knees when [place] her 's flower arrangements. She did not seek any assistance, but this morning noted she was unable to completely make conversation. Her son felt she was slurring some of her speech at times and she presented to the Emergency Room for evaluation. A complete workup included Tele-Neurological consult with Dr. Frederick Sheets. After exam, she was noted to have expressive aphasia. Initial CT of the head showed no bleed and impression initially was a subacute ischemic stroke with recommendation the patient be admitted for followup initial evaluation with more diagnostics including CTA of the head and neck with MRA of the brain without contrast. She was placed in observation in stable condition. PAST MEDICAL HISTORY: 1. Hypertension. 2. Diabetes. 3. Atrial fibrillation on Xarelto. 4. Colon cancer in 2008 with surgical resection. 5. Chronic cystitis on bacteriostatic antibiotic dosing. PAST SURGICAL HISTORY: 1. Cholecystectomy. 2. Colon resection in 2008. 3. Hysterectomy. 4. Bladder suspension. CURRENT MEDICATIONS: 1. Xarelto 15 mg daily. 2. Tylenol 325 mg daily. 3. Simvastatin 80 mg at bedtime. 4. Pantoprazole 40 mg daily. 5. Multivitamin 1000 mg daily. 6. Metoprolol 50 mg b.i.d. 7. Metformin 500 mg b.i.d. 8. Lisinopril 20 mg b.i.d. 9. Hydroxyzine 10 mg q.12h. 10. Lopid 600 mg b.i.d. 11. Clonidine 0.1 mg t.i.d. 12. Cephalexin 500 mg daily. 13. Calcium supplement 1200 mg daily. 14. Amlodipine 5 mg daily. ALLERGIES: TRAMADOL. FAMILY HISTORY: Father at age 68 secondary to lung cancer. Mother at age 90 secondary to natural causes. She has one sister who from myocardial infarction. SOCIAL HISTORY: The patient is a retired workers compensation legal secretary. She is within the last year. She has four children. She has a previous history of smoking cigarettes and quit approximately 15 years previously. She only drinks on rare occasions. She denies any illicit drug use. REVIEW OF SYSTEMS: CONSTITUTIONAL: As noted in history of present illness, generalized lower extremity weakness. Denies chills, fever or malaise. HEENT: Denies vision changes, double vision, earaches, sore throats. RESPIRATORY: Negative for coughing, wheezing or shortness of breath. CARDIOVASCULAR: Negative for chest pain, palpitations. GASTROINTESTINAL: Negative for nausea, vomiting, diarrhea, constipation or abdominal pain. GENITOURINARY: Negative for dysuria, hematuria, polyuria, but she does have chronic cystitis. MUSCULOSKELETAL: Negative for joint pain, back pain, neck pain. SKIN: Negative for lesions, rashes, moles or unexplained changes. NEUROLOGIC: As noted in history of present illness, expressive aphasia. Denies ataxia, seizures or any other focal or sensory deficit. HEMATOLOGIC: Negative for easy bruising, unexplained bleeding or transfusion reactions. PHYSICAL EXAMINATION: VITAL SIGNS: Initially in the Emergency Room, she was hypertensive. Temperature 97.6, pulse 78, blood pressure 260/92, respirations 20, O2 saturation 96% on room air. On discharge, blood pressure was 150/70, heart rate 71, saturation 95% on room air, afebrile at 98.5. GENERAL: The patient was resting, did not appear to be in any acute distress. She was alert. HEENT: Tympanic membranes clear bilaterally. Oropharynx is pink, moist without any lesions. NECK: Supple, nontender with full range of motion. No jugular venous distention noted. RESPIRATORY: Lung sounds are clear to auscultation bilaterally without any rhonchi, wheezes or rales. CARDIOVASCULAR: Regular rate and rhythm without any appreciable murmurs, gallops, or rubs. ABDOMEN: Soft, nontender. Positive bowel sounds. EXTREMITIES: There is no cyanosis, clubbing or edema. NEUROLOGIC: NHISS was 1. She was alert and oriented x3. At time of my exam, she had no noted aphasia, no dysarthria, no noted limb ataxia, no drift of both upper and lower extremities. Facial features are symmetrical. Vision was normal. Gaze was normal. She answered all questions appropriately. SKIN: Warm, pink and dry. LABORATORY: CBC showed white count 6,000, hemoglobin 13, hematocrit 38.2, platelet count 383,000, differential without a left shift. Coagulation studies showed PT 11.4, PTT 30.8. Chemistries showed normal electrolytes, BUN 21, creatinine 0.7. Hemoglobin A1c 5.8. Blood sugar 173. Liver functions all within normal limits. Troponin less than 0.02. Lipid panel showed triglycerides 159, cholesterol 180, HDL 41, LDL 103. Urinary symptoms showed trace blood, moderate leukocyte esterase with microscopic showing 3 RBCs, 10 to 20 WBCs, no epithelials or bacteria. MICROBIOLOGY: Urine culture showed no growth at 24 hours. RADIOLOGY: Initially, she had a CT of the head and per radiologic interpretation showed advanced senescent changes, but no CTA evidence of acute intracranial abnormalities. This was followed with a CTA of the neck and head and per radiologic interpretation showed atherosclerotic changes without hemodynamically significant stenosis of the carotid bifurcation. There was 50% narrowing of the right vertebral artery at the C6-7 level secondary to osteophytic indentation. There were also focal areas of severe stenosis within the left M2 branch versus adherent thrombus. Otherwise, appears there was good filling of larger intracranial arterial branches. Please see that full report for details. She then had an MRI of the brain without contrast and per radiologic interpretation showed 2 cm area of acute ischemia within the left centum semiovale white matter. Please see all those reports for details. HOSPITAL COURSE: Ms. Day was placed in observation after she was seen in the Emergency Room for acute stroke and seen by Tele-Neurological consultation. By the time she got to the Medical/Surgical Floor, she had no obvious aphasia, no obvious weaknesses. Given that she was greater than 4-1/2 hours past the event, she was not a candidate for IV Alteplase or intraarterial intervention secondary to greater than 24 hours past event and NIHSS was 1. She was imaged including CT angiogram of neck and MRI without contrast as noted above as well as echo verbal report showed ejection fraction of about 55%. No other concerning findings on that report. Full report was pending. She had a bedside swallow evaluation and was not to have any deficits. She was started on ADA diet. She was started on 81 mg aspirin as well as continued on her current statin per recommendations to maintain her LDL less than 70. She had DVT prophylaxis with Xarelto and was allowed permissive hypertension. She was on telemetry all night and no recurrence of her symptoms. Her blood pressure normalized. She had evaluation with no residual effects with no findings concerning for a need for physical therapy, occupational therapy or speech therapy. She was found to be clinically stable on the morning of discharge. After talking to Dr. Osborne, her primary care physician, it was decided that the patient was able to be discharged to follow up with Dr. Osborne in the outpatient setting. She was already on aspirin, Xarelto, a statin as well as management for blood pressure and diabetes. She was found to be clinically stable without any residual effects. She was discharged home. PLAN: Ms. Day was discharged home to followup with Dr. Osborne. She was to call his office to get an appointment next week. She was to continue with aspirin, statin, Xarelto and all other medications as prior to hospitalization. She was to resume her usual diabetic diet, increase activity as tolerated and given warnings to return to the ER if she had any concerning symptoms. She did have a urine culture, but has chronic cystitis and is on cephalexin. Therefore, no other antibiotics were prescribed and that culture actually was negative at discharge. CONDITION ON DISCHARGE: Stable and improved. DISPOSITION: The patient was discharged home. #[id number] MTDD
== END 2020-02-21 12:45 | disposition home or self-care (01) ==
LOC: ER 14:57 → MS 18:47
PROVIDERS: ADMIT Nurse Practitioner Family; ATTEND Nurse Practitioner Family
DX: I63.312 Cerebral infarction due to thrombosis of left middle cerebral artery (principal); R47.01 Aphasia; R29.701 NIHSS score 1; I10 Essential (primary) hypertension; I48.20 Chronic atrial fibrillation, unspecified; E11.9 Type 2 diabetes mellitus without complications; Z79.01 Long term (current) use of anticoagulants; Z79.84 Long term (current) use of oral hypoglycemic drugs; Z79.82 Long term (current) use of aspirin; Z79.899 Other long term (current) drug therapy; Z88.6 Allergy status to analgesic agent; Z85.038 Personal history of other malignant neoplasm of large intestine; Z87.891 Personal history of nicotine dependence; Z80.1 Family history of malignant neoplasm of trachea, bronchus and lung; Z82.49 Family history of ischemic heart disease and other diseases of the circulatory system
CPT/HCPCS: 96374; 96375; J0696; J1815; J7050; 82553; 80053; 87086; 82948 ×4; 83036; 80061; 36415 ×2; 81001; 85025; 82550; 85730; 85610; 84484; 36416 ×4; 71045; 70450; 70496; 70498; 94760; 94762; 97116; 97162; 99285; 93306; 70551; 93005; G0378

== ENCOUNTER → 2020-02-25 | Outpatient (CLI) | payer OTHER | LOC: GMA MATASK 17:15 | PROVIDERS: ATTEND Family Medicine | DX: R30.0 Dysuria (principal) ==

== ENCOUNTER 2020-02-28 09:23 | Emergency (ER) | payer OTHER ==
[2020-02-28 09:57] VITALS: O2SAT 97
--- NOTE | 2020-02-28 10:09 | CT ---
EXAM DESCRIPTION: Head CLINICAL HISTORY: rue weakness, slurred speech COMPARISON: MRI brain 02/21/2020. CT head 02/20/2020 TECHNIQUE: Multiple axial images of the head without contrast. Multiplanar reformatted images. This exam was performed according to our departmental dose-optimization program, which includes automated exposure control, adjustment of the mA and/or kV according to patient size and/or use of iterative reconstruction technique. FINDINGS: No CT evidence of hemorrhage or mass effect. Subacute ischemic infarct in the left basal ganglia and periventricular white matter again demonstrated. Severe patchy supratentorial white matter hypodensities elsewhere. Mild to moderate generalized volume loss. There are no abnormal extra-axial fluid collections. Calcific plaque in the visualized arteries. There is no acute calvarial defect. The visualized paranasal sinuses and the mastoids are clear. IMPRESSION: 1. Evolving subacute ischemic infarct in the left basal ganglia and left frontal periventricular white matter. No hemorrhage or mass effect. 2. Advanced senescent changes. Findings discussed with Dr. Wade Tinajero on 02/28/2020 at 0955 hours. Electronically signed by: Vasile Downing MD 02/28/2020 9:56 AM CDT
--- NOTE | 2020-02-28 10:17 | RAD ---
Portable chest one view INDICATION: Stroke IMPRESSION: February 20, 2020 IMPRESSION: Slight elevation left hemidiaphragm stable. Heart size stable. No failure. No focal infiltrate. Overall stable chest Electronically signed by: Romulo Fairchild MD 02/28/2020 10:16 AM CDT
--- NOTE | 2020-02-28 10:49 | ED.PDOC ---
History of Present Illness - General Chief Complaint: Neuro Symptoms/Deficits Time Seen by Provider: 02/28/20 09:24 Source: patient Exam Limitations: no limitations - History of Present Illness Initial Comments: The patient is an 84-year-old female presented to the emergency room secondary to worsening symptoms of the stroke that she had about a week ago, on the . On that day she was seen here in the emergency room and was admitted to the hospital. She had a CT scan of the head along with a CT angiogram and MRI. There was seen a severe stenosis within the left M2 branch versus an a dherent thrombus. MRI showed a focal area of 2 cm of acute ischemia in the left centrum semisemiovale white matter. Her symptoms essentially resolved within 24 hours so she was allowed to go home. However over the following week her symptoms have gradually started coming back. Her symptoms are more severe now. She has flaccid paralysis of the right upper extremity. She has some mild weakness of the right lower extremity. She has severe difficulty with speech and is having some difficulty swallowing as well. It is difficult to tell whether this is a dysarthria alone or whether there is some dysphagia associated as well. She is able to answer yes/no questions with high accuracy. She is alert and oriented. Vital signs are stable. She is not exhibiting pain. She vision. No syncope. She did have a fall a few days ago but did not hit her head. No loss of consciousness. She is pleasant and cooperative. She has been able to walk though her gait is a little unsteady. Timing/Duration: 1 week Severity: severe Improving Factors: nothing Worsening Factors: nothing Associated Symptoms: malaise, weakness Allergies/Adverse Reactions: Allergies Tramadol Allergy (Verified 02/21/20 11:40) Tramadol Allergy (Unknown, Uncoded 02/21/20 11:40) Home Medications: Ambulatory Orders Gemfibrozil [Lopid] 600 mg PO BID 02/25/18 Lisinopril [Prinivil] 20 mg PO BID 02/25/18 Metformin HCl [Metformin Hydrochloride] 500 mg PO BIDFD 02/25/18 Simvastatin 80 mg PO BEDTIME 02/25/18 Clonidine HCl 0.1 mg PO TID 02/27/18 Metoprolol Tartrate 50 mg PO BID 04/11/18 Pantoprazole Sodium 40 mg PO DAILY 04/11/18 Amlodipine Besylate 5 mg PO DAILY 02/21/20 Aspirin [Aspirin Adult Low Dose] 81 mg PO DAILY #30 tab 02/21/20 Calcium 1200 0322-8216 mg-Unit 1,200 mg PO DAILY 02/21/20 Cephalexin 500 mg PO DAILY 02/21/20 Multi Complete 1,000 mg PO DAILY 02/21/20 Tylenol 325 mg PO Q6HR PRN 02/21/20 Xarelto 15 mg PO DAILY 02/21/20 hydrOXYzine HCl 10 mg PO Q12HR PRN 02/21/20 Review of Systems - Review of Systems Review of Systems: 02/28/20 10:50 Limited due to current neurological condition. Constitutional: States: malaise, weakness EENTM: States: other - Difficulty swallowing Respiratory: States: no symptoms reported Cardiology: States: no symptoms reported Gastrointestinal/Abdominal: States: no symptoms reported Genitourinary: States: no symptoms reported Musculoskeletal: States: see HPI Skin: States: no symptoms reported Neurological: States: see HPI Endocrine: States: no symptoms reported All other Systems: No Change from Baseline Past Medical History (General) - Patient Medical History Hx Seizures: No Hx Stroke: Yes Hx Dementia: No Hx Asthma: No Hx of COPD: No Hx Cardiac Disorders: Yes - enlarged ventricles, AFib Hx Congestive Heart Failure: No Hx Pacemaker: No Hx Hypertension: Yes Hx Thyroid Disease: No Hx Diabetes: Yes Hx Gastroesophageal Reflux: No Hx Renal Disease: No Hx Cancer: No Hx of HIV: No Hx Hepatitis C: No Hx MRSA: No - Vaccination History Hx Tetanus, Diphtheria Vaccination: No Hx Influenza Vaccination: Yes - 2017 Hx Pneumococcal Vaccination: Yes - 2018 - Social History Hx Tobacco Use: No Hx Chewing Tobacco Use: No Hx Alcohol Use: No Hx Substance Use: No Hx Substance Use Treatment: No Hx Depression: No Hx Physical Abuse: No Hx Emotional Abuse: No Hx Suspected Abuse: No - Female History Patient : No Family Medical History - Family History Maternal Family History: Unknown Living Status: Hx Family Cancer: Yes - dad-prostate; Hx Family;Other: MOM- age 9090 years old -old age Sister Living Status: Hx Family Asthma: No Hx Cardiac Disease: Yes - due to ID Physical Exam - Physical Exam General Appearance: Alert, Comfortable, No apparent distress Eye Exam: bilateral normal Ears, Nose, Throat: hearing grossly normal, normal pharynx - Gag reflex is weak. Neck: full range of motion, supple Respiratory: lungs clear, normal breath sounds, no respiratory distress, no accessory muscle use Cardiovascular/Chest: normal peripheral pulses, no edema, other - Regular rate Peripheral Pulses: radial,right: 2+, radial,left: 2+ Gastrointestinal/Abdominal: non tender, soft Rectal Exam: deferred Back Exam: normal inspection, no CVA tenderness Extremity: normal range of motion, non-tender, no pedal edema, normal capillary refill Neurologic: alert, normal mood/affect, oriented x 3, other - Possibly a mild right-sided facial droop. Significant dysarthria versus expressive aphasia. Right upper extremity severe weakness. Mild right lower extremity weakness. Skin Exam: normal color Comments: Vital Signs - 24 hr 02/28/20 09:51 Temperature 97.4 F L Pulse Rate [ 58 L left brachial] Respiratory 20 Rate Blood Pressure 166/72 [left brachial] O2 Sat by Pulse 97 Oximetry Progress - Progress Progress: 02/28/20 10:53 The patient is an 84-year-old female presented emergency room secondary to a recurrence and worsening of her stroke symptoms that she experienced on the of this month. Most pronounced on the right upper extremity weakness as well as the difficulty with speech and swallowing. The patient is being transferred to [facility] for neurology evaluation and also likely for a swallow evaluation. The patient apparently had doses of her Xarelto and aspirin last night. We will forward copies of the CT scan from today as well as the CTA and MRI from about a week ago. The patient is being transferred for higher level of care. Acceptance is appreciated. Vital signs have remained stable and the patient does not appear to be in any acute distress at this point. She is going to receive a 500 cc fluid bolus as her oral intake has likely been decreased over the last 24 hours. The patient is n.p.o. as she is obviously likely an aspiration risk. pineda [email or web address] [id number] 02/28/20 10:56 There was a delay in transfer due to difficulty finding an open hospital due to coronavirus. - Results/Orders Results/Orders: Head CT shows evolution of the stroke seen earlier in the week. See report for details. EKG shows sinus bradycardia at a rate of 59 bpm. Borderline left axis deviation. Slow R wave progression. No definitive ST segment or T wave changes indicative of acute ischemia. Normal QT interval. Chest x-ray shows no obvious acute pathology. See report for details. Laboratory Tests 02/28/20 02/28/20 02/28/20 09:50 09:50 09:50 WBC 7.1 RBC 4.01 L Hgb 13.4 Hct 38.6 MCV 96.4 MCH 33.4 H MCHC 34.6 RDW 12.8 Plt Count 386 MPV 8.0 Absolute Neuts (auto) 4.90 Absolute Lymphs (auto) 1.50 Absolute Monos (auto) 0.50 Absolute Eos (auto) 0.20 Absolute Basos (auto) 0.10 Neutrophils % 68.1 Lymphocytes % 20.9 Monocytes % 7.3 Eosinophils % 3.0 Basophils % 0.7 PT 12.8 H INR 1.29 H PTT (SP) 34.4 H Sodium 137 Potassium 4.4 Chloride 102 Carbon Dioxide 23 Anion Gap 16.4 BUN 25 H Creatinine 0.95 BUN/Creatinine Ratio 26.3 H Random Glucose 150 H Serum Osmolality 281.1 Calcium 9.3 Magnesium 1.9 Total Bilirubin 1.1 H AST 22 ALT 19 Alkaline Phosphatase 66 Creatine Kinase 62 CK-MB (CK-2) 1.8 CK-MB (CK-2) % Not Reportable Troponin I < 0.02 B-Natriuretic Peptide 43.7 Serum Total Protein 7.6 Albumin 4.0 Globulin 3.6 H Albumin/Globulin Ratio 1.1 Departure - Departure Clinical Impression: Ischemic stroke Dysphagia Qualifiers: Dysphagia type: unspecified Qualified Code(s): R13.10 - Dysphagia, unspecified Disposition: Transfer to Hospital Condition: Poor Departure Forms: ED Discharge - Pt. Copy, Patient Portal Self Enrollment Referrals: Ayo Osborne MD [Primary Care Provider] - 1-2 Weeks Home Medications: Ambulatory Orders Gemfibrozil [Lopid] 600 mg PO BID 02/25/18 Lisinopril [Prinivil] 20 mg PO BID 02/25/18 Metformin HCl [Metformin Hydrochloride] 500 mg PO BIDFD 02/25/18 Simvastatin 80 mg PO BEDTIME 02/25/18 Clonidine HCl 0.1 mg PO TID 02/27/18 Metoprolol Tartrate 50 mg PO BID 04/11/18 Pantoprazole Sodium 40 mg PO DAILY 04/11/18 Amlodipine Besylate 5 mg PO DAILY 10/15/20 Aspirin [Aspirin Adult Low Dose] 81 mg PO DAILY #30 tab 02/21/20 Calcium 1200 8284-7357 mg-Unit 1,200 mg PO DAILY 02/21/20 Cephalexin 500 mg PO DAILY 02/21/20 Multi Complete 1,000 mg PO DAILY 02/21/20 Tylenol 325 mg PO Q6HR PRN 02/21/20 Xarelto 15 mg PO DAILY 02/21/20 hydrOXYzine HCl 10 mg PO Q12HR PRN 02/21/20 Transfer to Outside Facility - Transfer Information Decision to Transfer Date: 02/28/20 Decision to Transfer Time: 10:00 Reason for Transfer: required specialist not available Accepting Provider:: dr christensen Accepting Facility: [facility]
[2020-02-28] MEDS ORDERED: MORPHINE SULFATE INJ 10 MG/ML VIAL IV ONE (11:18)
[2020-02-28 13:33] VITALS: BP 142/66; TEMP 97.5
== END 2020-02-28 11:55 | disposition short-term general hospital (02) ==
LOC: ER 09:23
DX: I63.22 Cerebral infarction due to unspecified occlusion or stenosis of basilar artery (principal); R13.10 Dysphagia, unspecified; G83.21 Monoplegia of upper limb affecting right dominant side; R47.9 Unspecified speech disturbances; Z86.73 Personal history of transient ischemic attack (TIA), and cerebral infarction without residual deficits; I48.91 Unspecified atrial fibrillation; I10 Essential (primary) hypertension; Z79.01 Long term (current) use of anticoagulants; Z79.82 Long term (current) use of aspirin; Z88.8 Allergy status to other drugs, medicaments and biological substances
CPT/HCPCS: 36415; 70450; 71045; 80053; 82550; 82553; 83735; 83880; 84443; 84484; 85025; 85610; 85730; 93005; J2270

== ENCOUNTER 2020-05-11 17:08 | Emergency (ER) | payer MEDICARE, OTHER ==
--- NOTE | 2020-05-11 17:49 | ED.PDOC ---
History of Present Illness - General Chief Complaint: Chest Pain/NV Stated Complaint: Epigastric/chest pain Time Seen by Provider: 05/11/20 17:37 Additional Information: Patient is an 85-year-old female who presents to the ED with chief complaint of chest pain and abdominal pain. Patient lives in assisted living and indicates that approximately 1 hour prior to transfer patient developed transient chest pain that has since resolved. Pain was in her central chest and was a tightness, 2/10. Patient has a history of A. fib but does not have a history of CAD. Patient also with central abdominal pain that is mild and is still present, also a 2/10, a dull ache. Of note, patient has had a stroke and has compromised speech and her history is somewhat limited. Patient received her Covid vaccination earlier today. - History of Present Illness Allergies/Adverse Reactions: Allergies Tramadol Allergy (Verified 05/11/20 17:37) Tramadol Allergy (Unknown, Uncoded 02/21/20 11:40) Home Medications: Ambulatory Orders Gemfibrozil [Lopid] 600 mg PO BID 02/25/18 Lisinopril [Prinivil] 20 mg PO BID 02/25/18 Metformin HCl [Metformin Hydrochloride] 500 mg PO BIDFD 02/25/18 Simvastatin 80 mg PO BEDTIME 02/25/18 Clonidine HCl 0.1 mg PO TID 02/27/18 Metoprolol Tartrate 50 mg PO BID 04/11/18 Pantoprazole Sodium 40 mg PO DAILY 04/11/18 Amlodipine Besylate 5 mg PO DAILY 02/21/20 Aspirin [Aspirin Adult Low Dose] 81 mg PO DAILY #30 tab 02/21/20 Calcium 1200 6791-8028 mg-Unit 1,200 mg PO DAILY 02/21/20 Cephalexin 500 mg PO DAILY 02/21/20 Multi Complete 1,000 mg PO DAILY 02/21/20 Tylenol 325 mg PO Q6HR PRN 02/21/20 Xarelto 15 mg PO DAILY 02/21/20 hydrOXYzine HCl 10 mg PO Q12HR PRN 02/21/20 Ciprofloxacin HCl [Cipro] 500 mg PO BID #20 tab 05/11/20 Review of Systems - Review of Systems Constitutional: States: no symptoms reported. Denies: chills, fever EENTM: States: no symptoms reported Respiratory: States: no symptoms reported. Denies: cough, short of breath Cardiology: States: chest pain. Denies: palpitations Gastrointestinal/Abdominal: States: abdominal pain. Denies: diarrhea, nausea, vomiting Genitourinary: States: no symptoms reported. Denies: dysuria Musculoskeletal: States: no symptoms reported Skin: States: no symptoms reported. Denies: rash All other Systems: Reviewed and Negative Past Medical History (General) - Patient Medical History Hx Seizures: No Hx Stroke: Yes Hx Dementia: No Hx Asthma: No Hx of COPD: No Hx Cardiac Disorders: Yes - enlarged ventricles, AFib Hx Congestive Heart Failure: No Hx Pacemaker: No Hx Hypertension: Yes Hx Thyroid Disease: No Hx Diabetes: Yes Hx Gastroesophageal Reflux: No Hx Renal Disease: No Hx Cancer: No Hx of HIV: No Hx Hepatitis C: No Hx MRSA: No - Vaccination History Hx Tetanus, Diphtheria Vaccination: No Hx Influenza Vaccination: Yes Hx Pneumococcal Vaccination: Yes - Social History Hx Tobacco Use: No Hx Chewing Tobacco Use: No Hx Alcohol Use: No Hx Substance Use: No Hx Substance Use Treatment: No Hx Depression: No Hx Physical Abuse: No Hx Emotional Abuse: No Hx Suspected Abuse: No - Activities of Daily Living [facility]isted [facility] (if applicable[facility]:: [place] - Female History Patient is a Female of Child Bearing Age (10 -59 yrs old): No Patient : No Family Medical History - Family History Maternal Family History: Unknown Living Status: Hx Family Cancer: Yes - dad-prostate; Hx Family;Other: MOM- age 9090 years old -old age Sister Living Status: Hx Family Asthma: No Hx Cardiac Disease: Yes - due to NV Physical Exam - Physical Exam General Appearance: Alert, Comfortable, No apparent distress, Well Developed, Well Nourished Eyes, Ears, Nose, Throat Exam: pharynx normal Neck: supple, normal inspection Respiratory: chest non-tender, lungs clear, normal breath sounds, no respiratory distress, no accessory muscle use Cardiovascular/Chest: normal peripheral pulses, regular rate, rhythm, no edema, no gallop, no JVD, no murmur Peripheral Pulses: radial,right: 2+, radial,left: 2+ Gastrointestinal/Abdominal: normal bowel sounds, soft, no organomegaly, no pulsatile mass, other - Mild diffuse abdominal tenderness to palpation soft, no guarding. Extremity: normal range of motion, non-tender, no pedal edema Neurologic: alert, normal mood/affect, oriented x 3, other - Patient with expressive aphasia but she appears to understand what is spoken to her. Patient follows commands. And answers questions appropriately as she is able. Skin Exam: normal color, warm/dry Progress - Progress Progress: 05/11/20 17:51 Differential diagnosis includes but is not limited to ACS, pneumonia, abdominal cramping, bowel obstruction 05/11/20 19:41 Patient's labs are unremarkable including her initial troponin. Her chest x-ray is clear and her abdominal CT is nonacute. Patient has developed a headache in the ED and she is hypertensive. IV hydralazine given and will CT patient's head but I have low clinical suspicion for ICH. Awaiting patient's second troponin. 05/11/20 21:08 EKG: Normal sinus rhythm, rate 73, left axis, normal QRS, nonspecific ST and T wave changes, negative STEMI 05/11/20 22:40 Patient reassessed and she is sitting up in bed talking in no distress. Patient serial cardiac enzymes are negative as is her CT head. Patient's UA has just resulted and she has a UTI. I believe this is the source of patient's abdominal discomfort. Patient requests to be discharged home with a trial of outpatient therapy. Will give Cipro in the ED and DC with same and patient to follow-up with her PCP. Vital signs stable, patient is NAD and looks clinically well and I believe is safe for discharge with outpatient follow-up. Follow-up instructions, discharge instructions and return to ED precautions discussed with patient. Patient voices understanding and willingness to comply with instructions. All laboratory and/or radiographic results have been discussed with the patient, and all questions answered. Patient is happy with plan. Departure - Departure Clinical Impression: UTI (urinary tract infection) Qualifiers: Urinary tract infection type: acute cystitis Hematuria presence: without hematuria Qualified Code(s): N30.00 - Acute cystitis without hematuria Time of Disposition: 22:42 Disposition: Discharge to Home or Self Care Condition: Fair Departure Forms: ED Discharge - Pt. Copy, Patient Portal Self Enrollment Instructions: DI for Chest Pain, Urinary Tract Infections in Adults Referrals: Ayo Osborne MD [Primary Care Provider] - 1-5 Days Prescriptions: Ciprofloxacin HCl [Cipro] 500 mg PO BID #20 tab Home Medications: Ambulatory Orders Gemfibrozil [Lopid] 600 mg PO BID 02/25/18 Lisinopril [Prinivil] 20 mg PO BID 02/25/18 Metformin HCl [Metformin Hydrochloride] 500 mg PO BIDFD 02/25/18 Simvastatin 80 mg PO BEDTIME 02/25/18 Clonidine HCl 0.1 mg PO TID 02/27/18 Metoprolol Tartrate 50 mg PO BID 04/11/18 Pantoprazole Sodium 40 mg PO DAILY 04/11/18 Amlodipine Besylate 5 mg PO DAILY 02/21/20 Aspirin [Aspirin Adult Low Dose] 81 mg PO DAILY #30 tab 02/21/20 Calcium 1200 1052-0323 mg-Unit 1,200 mg PO DAILY 02/21/20 Cephalexin 500 mg PO DAILY 02/21/20 Multi Complete 1,000 mg PO DAILY 02/21/20 Tylenol 325 mg PO Q6HR PRN 02/21/20 Xarelto 15 mg PO DAILY 02/21/20 hydrOXYzine HCl 10 mg PO Q12HR PRN 02/21/20 Ciprofloxacin HCl [Cipro] 500 mg PO BID #20 tab 05/11/20
[2020-05-11] MEDS ORDERED: hydrALAZINE HCl 20 MG/ML VIAL IV ONE ×2 (18:33→19:37)
--- NOTE | 2020-05-11 18:36 | RAD ---
EXAM: Chest,1 View CLINICAL INDICATION: Chest pain COMPARISON: 02/28/2020 FINDINGS: A single view of the chest was obtained. The heart size is normal. The pulmonary vascularity is unremarkable. The lungs are clear. There is no consolidation, infiltrate, pleural effusion, or pneumothorax. IMPRESSION: No evidence of active pulmonary disease. Electronically signed by: Monster Becker MD 05/11/2020 6:34 PM [employer]
[2020-05-11] MEDS ORDERED: ACETAMINOPHEN 325 MG TAB PO ONE (19:15)
--- NOTE | 2020-05-11 19:31 | CT ---
CT ABDOMEN PELVIS WITH IV CONTRAST HISTORY: Abdominal pain. COMPARISON: 02/27/2018 TECHNIQUE: CT scan of the abdomen and pelvis was performed with IV contrast. This exam was performed according to our departmental dose-optimization program, which includes automated exposure control, adjustment of the mA and/or kV according to patient size and/or use of iterative reconstruction technique. FINDINGS: The lung bases are clear. No pleural or pericardial effusions. There is no hiatal hernia. There is a simple cyst in the left hepatic lobe. There has been a prior cholecystectomy. The spleen, pancreas, and adrenal glands are unremarkable. There are a few tiny nonobstructing stones right kidney along with simple cysts in both kidneys. No hydronephrosis. There has been a prior hysterectomy. The stomach and duodenum are unremarkable. The small bowel is normal without evidence of inflammation or obstruction. The appendix is not visualized. There is no evidence of acute diverticulitis. No intraperitoneal adenopathy, free fluid, or free air is identified. There are mild degenerative changes of the spine. The aorta is normal caliber and contains atherosclerotic calcifications. There is a small ventral hernia containing a short segment of bowel but without inflammatory changes in the hernia sac. IMPRESSION: No acute abdominal or pelvic findings. Electronically signed by: Harmeet Cook MD 05/11/2020 7:29 PM DRUGLESS PHYSICIAN
[2020-05-11] MEDS ORDERED: MORPHINE SULFATE INJ 10 MG/ML VIAL IV ONE (19:38)
[2020-05-11] MEDS ORDERED: hydrALAZINE HCl 20 MG/ML VIAL ONE (19:40)
--- NOTE | 2020-05-11 20:20 | CT ---
EXAM: Head HISTORY: 85 years Female QUISPE COMPARISON: 02/28/2020 TECHNIQUE: Contiguous axial images of the head were obtained from the skull base through the vertex with IV contrast followed by multiplanar reformats. This exam was performed according to our departmental dose-optimization program, which includes automated exposure control, adjustment of the mA and/or kV according to patient size and/or use of iterative reconstruction technique. FINDINGS: Generalized parenchymal volume loss. No hydrocephalus. No midline shift, mass effect or abnormal extraaxial collection. No acute intracranial hemorrhage or infarct. Chronic microangiopathic ischemic white matter changes. 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 Atherosclerosis. Orbital contents are unremarkable. The paranasal sinuses and mastoid air cells are well pneumatized. No acute calvarial abnormality. IMPRESSION: 1. No acute intracranial pathology. 2. Chronic changes, as above. Electronically signed by: Monster Calix MD 05/11/2020 8:18 PM [facility]
[2020-05-11] MEDS ORDERED: cloNIDine HCL 0.1 MG TAB PO ONE (21:01)
[2020-05-11] MEDS ORDERED: CIPROFLOXACIN 500 MG TAB PO ONE (22:38)
[2020-05-11 23:17] VITALS: BP 168/98; TEMP 97.9; O2SAT 97
== END 2020-05-11 23:17 | disposition home or self-care (01) ==
LOC: ER 17:08
DX: N30.00 Acute cystitis without hematuria (principal); R07.9 Chest pain, unspecified; R51.9 Headache, unspecified; I10 Essential (primary) hypertension; E11.9 Type 2 diabetes mellitus without complications; I48.91 Unspecified atrial fibrillation; I69.328 Other speech and language deficits following cerebral infarction; Z79.01 Long term (current) use of anticoagulants; Z79.899 Other long term (current) drug therapy; Z79.82 Long term (current) use of aspirin; Z79.84 Long term (current) use of oral hypoglycemic drugs; Z88.5 Allergy status to narcotic agent
CPT/HCPCS: 36415; 70450; 71045; 74177; 80053; 81001; 84484; 85025; 87086; 93005; J0360; J2270

== ENCOUNTER → 2020-06-20 | Outpatient (CLI) | payer MEDICARE | LOC: GMA MATASK 13:00 | PROVIDERS: ATTEND Family Medicine | DX: R30.0 Dysuria (principal) ==